=== PATIENT | male | born 1955 | race Caucasian/White ===

== ENCOUNTER 2024-07-14 16:07 | Inpatient (IN) | payer MEDICARE, OTHER, SELFPAY ==
--- NOTE | ~2024-07-14 | XR_ITS ---
XR knee RT 3V 07/18/2024 12:05 Indication: Right knee pain Procedure: 3 views right knee Comparison: No prior studies for comparison. Findings: There is mild tricompartment osteoarthritis. Moderate joint effusion. No fracture or trauma tic malalignment. No foreign bodies. Impression: 1: Mild osteoarthritis of the right knee. 2: Moderate joint effusion. Reviewed, dictated and finalized at location L. CARE SALES EXECUTIVE Impression: 1: Mild osteoarthritis of the right knee. 2: Moderate joint effusion.
--- NOTE | ~2024-07-14 | CT_ITS ---
EXAMINATION: CT brain wo con DATE: 07/14/2024 17:54 INDICATION: weakness, ams . TECHNIQUE: Computed tomography (CT) of the head was performed without intravenous contrast. The mA wa s adjusted according to patient size. Iterative reconstruction technique was employed. The dose-lengt h product was 681.00 mGy-cm. COMPARISON: None. FINDINGS: No acute intracranial hemorrhage or extra-axial fluid collection. No hydrocephalus, mass, or herniation. No acute ischemic infarct. Unremarkable dural venous sinus attenuation. No acute osseous abnormality. Right maxillary retention cyst/polyp, mild left inferior frontal and ethmoid mucosal thickening, the remaining aerated spaces are clear. Moderate cerebral and cerebellar atrophy and mild chronic white matter change. Atherosclerotic intrac ranial calcification. IMPRESSION: No acute intracranial process. Reviewed, dictated and finalized at location K. CHER UTILITY
--- NOTE | ~2024-07-14 | XR_ITS ---
EXAMINATION: XR chest 2V Exam Date/Time: 07/14/2024 17:52 EVENTS INTERN HISTORY: cough, weakness Comparison: None. RESULT: Lines, tubes, and devices: None. Lungs and pleura: Clear. Cardiomediastinal silhouette: Unremarkable. Other: No acute osseous or upper abdominal finding. IMPRESSION: No acute cardiopulmonary process. Reviewed, dictated and finalized at location K. TS INTERN
[2024-07-14 16:16] VITALS: BP 166/59; PULSE 99; RESP 16; TEMP 36.4; O2SAT 100
--- NOTE | 2024-07-14 17:33 | ED.WEAKNESS ---
HPI - Weakness General Chief complaint: Weakness <Fatimah Monzon PA-C - Last Filed: 07/14/24 17:56> Stated complaint: weakness <Fatimah Monzon PA-C - Last Filed: 07/14/24 17:56> Time Seen by Provider: 07/14/24 17:33 <Fatimah Monzon PA-C - Last Filed: 07/14/24 17:56> Focused HPI: Patient is a 69 y/o male who presents to the ED via EMS from home with report of weakness. Patient is a poor historian. Reports he has been feeling somewhat confused and increasingly weak over the last 1 week. Reports dry cough. Denies fevers, CP, SOB, BLE pain or swelling, N/V. GENERAL: Elderly, obese with BMI of 39.5, and in no acute distress. HEAD: Normocephalic, atraumatic. CHEST: Clear to auscultation. ?No respiratory distress. No significant focal lung sounds. HEART: Regular rate and rhythm.? No significant peripheral edema. NEURO: ?Alert and oriented x3. Patient screened in triage and initial orders placed.? ?Additional care and disposition to be based upon?diagnostic testing and treatment. <Fatimah Monzon PA-C - Last Filed: 07/14/24 17:56> Focused HPI: Patient is a 69 y/o male who presents to the ED via EMS from home with report of weakness. Patient is a poor historian. Reports he has been feeling somewhat confused and increasingly weak over the last 1 month. Patient denies headache, fevers, chest pain, difficulty breathing, abdominal pain, nausea vomiting diarrhea, dysuria or any other physical complaints. GENERAL: Elderly, obese with BMI of 39.5, and in no acute distress. HEAD: Normocephalic, atraumatic. CHEST: Clear to auscultation. ?No respiratory distress. No significant focal lung sounds. HEART: Regular rate and rhythm.? No significant peripheral edema. NEURO: ?Alert and oriented x3. Patient screened in triage and initial orders placed.? ?Additional care and disposition to be based upon?diagnostic testing and treatment. <Brenden Burt MD - Last Filed: 07/15/24 02:59> Source: patient <Fatimah Monzon PA-C - Last Filed: 07/14/24 17:56> Mode of arrival: EMS <Fatimah Monzon PA-C - Last Filed: 07/14/24 17:56> Limitations: no limitations <QUETA Simpson Last Filed: 07/14/24 17:56> Related Data Allergies/Adverse reactions: Allergies Allergy/AdvReac Type Severity Reaction Status Date / Time tramadol Allergy Mild ITCHING Verified 07/14/24 16:19 <QUETA Simpson Last Filed: 07/14/24 17:56> Exam Narrative: APPEARANCE: No apparent distress. Poor historian Head: atraumatic. EYES: EOMI, NOSE: Atraumatic NECK: Trachea midline RESPIRATORY: No increased rate of breathing clear to auscultation CARDIOVASCULAR: RRR, no peripheral edema ABDOMINAL: Non-distended soft nontender MUSCULOSKELETAl: No obvious deformities NEURO: Alert. Moving 4/4 extremities SKIN:: Warm, dry. Normal color PSYCHIATRIC: Normal affect <Brenden Burt MD - Last Filed: 07/15/24 02:59> Course Vital Signs Vital signs: Vital Signs Temperature 97.6 F 07/14/24 16:16 Pulse Rate 99 07/14/24 16:16 Respiratory Rate 16 07/14/24 16:16 Blood Pressure 166/59 H 07/14/24 16:16 Pulse Oximetry 100 07/14/24 16:16 Temperature 97.6 F 07/14/24 16:16 Pulse Rate 99 07/14/24 16:16 Respiratory Rate 16 07/14/24 16:16 Blood Pressure 166/59 H 07/14/24 16:16 Pulse Oximetry 100 07/14/24 16:16 <QUETA Simpson Last Filed: 07/14/24 17:56> Vital Signs Temperature 97.6 F 07/14/24 16:16 Pulse Rate 99 07/14/24 16:16 Respiratory Rate 16 07/14/24 16:16 Blood Pressure 166/59 H 07/14/24 16:16 Pulse Oximetry 100 07/14/24 16:16 Temperature 97.6 F 07/14/24 16:16 Pulse Rate 99 07/14/24 16:16 Respiratory Rate 16 07/14/24 16:16 Blood Pressure 166/59 H 07/14/24 16:16 Pulse Oximetry 100 07/14/24 16:16 <Brenden Burt MD - Last Filed: 07/15/24 02:59> MDM - Weakness MDM Narrative Medical decision making narrative: MSE by LUANA in triage. <Fatimah Monzon PA-C - Last Filed: 07/14/24 17:56> MSE by LUANA in triage. -Course: This is a 69-year-old male presenting with chief complaint of weakness over the last 1-2 months. Patient is a poor historian but has no physical complaints at this time. I reached out to his to get more history and she said that over last 2 months his condition is getting worse. He is frequently confused and very weak. No previous diagnosis of dementia. He is having more falls at home and she is not able to take care of him. Broad workup was obtained ordered here and everything was negative. Patient will be placed in observation for care coordination consult as he may need placement to a group home. <Brenden Burt MD - Last Filed: 07/15/24 02:59> Lab Data Result diagrams: 07/14/24 23:40 07/14/24 23:40 <Fatimah Monzon PA-C - Last Filed: 07/14/24 17:56> Labs: Lab Results 07/14/24 07/14/24 Range/Units 23:13 23:40 WBC 9.0 (4.5-10.0) K/mm3 RBC 5.14 (4.6-6.20) M/mm3 Hgb 14.4 (14.0-18.0) g/dL Hct 45.3 (42.0-52.0) % MCV 88.1 (80-100) fl MCH 28.0 (26-34) pg MCHC 31.8 L (32-36) g/dl RDW 13.7 (11.5-14.5) % Plt Count 207 (150-375) k/mm3 MPV 10.6 H (7.4-10.4) fl Immature Gran % (Auto) 0.3 (0-0.5) % Neut % (Auto) 59.7 (45.5-73.1) % Lymph % (Auto) 27.1 (18.3-44.2) % Villalba % (Auto) 9.0 H (2.6-8.5) % Eos % (Auto) 3.3 (0-4.4) % Baso % (Auto) 0.6 (0.2-1.2) % Lymph # (Auto) 2.44 (0.9-3.2) K/mm3 Villalba # (Auto) 0.8 H (0.1-0.6) K/mm3 Eos # (Auto) 0.3 (0-0.3) K/mm3 Baso # (Auto) 0.1 (0.0-0.1) K/mm3 Abs Immat Gran (auto) 0.03 (0.00-0.031) K/mm3 Absolute Neuts (auto) 5.4 (1.3-6.7) K/mm3 Absolute Nucleated RBC 0.000 (0.0-0.012) K/mm3 Nucleated RBC % 0.0 (0.0-0.2) % PT 14.0 (11.1-14.7) Seconds INR 1.0 APTT 27.6 (22.3-36.8) Seconds Sodium 144 (137-145) mmol/L Potassium 3.7 (3.4-5.0) mmol/L Chloride 102 (98-107) mmol/L Carbon Dioxide 31 H (22-30) mmol/L Anion Gap 11 (4-12) mmol/L BUN 22 H (9-20) mg/dL Creatinine 0.93 (0.7-1.3) mg/dL Estim Creat Clear Calc 86 ml/min Estimated GFR > 60 (59 - ) Glucose 88 (65-110) mg/dL Lactic Acid 1.6 (0.7-2.0) mmol/L Calcium 9.6 (8.4-10.2) mg/dL Magnesium 1.9 (1.6-2.3) mg/dL Total Bilirubin 0.6 (0.2-1.3) mg/dL AST 27 (17-59) U/L ALT 26 (6-50) U/L Alkaline Phosphatase 106 (38-126) U/L NT-Pro-B Natriuret Pep 627 H (19.9-100) pg/mL Total Protein 8.0 (6.3-8.2) g/dL Albumin 4.6 (3.5-5.1) g/dL Urine Color Yellow (Yellow) Urine Appearance Clear (Clear) Urine pH 6.5 (5.0-9.0) Ur Specific [place] 1.018 (1.001-1.035) Urine Protein Negative (Negative) mg/dL Urine Glucose (UA) Negative (Negative) mg/dL Urine Ketones Negative (Negative) mg/dL Ur Blood (Man) Negative (Negative) Urine Nitrate Negative (Negative) Urine Bilirubin Negative (Negative) Urine Urobilinogen 1.0 (<2.0) mg/dL Leukocyte Esterase Rfl Negative (Negative) STEPHANIE/UL Influenza A (RT-PCR) Negative (Negative) Influenza B (RT-PCR) Negative (Negative) RSV (RT-PCR) Negative (Negative) SARS-CoV-2 RNA (RT-PCR) Negative (Negative) <Fatimah Monzon PA-C - Last Filed: 07/14/24 17:56> Lab Results 07/14/24 07/14/24 Range/Units 23:13 23:40 WBC 9.0 (4.5-10.0) K/mm3 RBC 5.14 (4.6-6.20) M/mm3 Hgb 14.4 (14.0-18.0) g/dL Hct 45.3 (42.0-52.0) % MCV 88.1 (80-100) fl MCH 28.0 (26-34) pg MCHC 31.8 L (32-36) g/dl RDW 13.7 (11.5-14.5) % Plt Count 207 (150-375) k/mm3 MPV 10.6 H (7.4-10.4) fl Immature Gran % (Auto) 0.3 (0-0.5) % Neut % (Auto) 59.7 (45.5-73.1) % Lymph % (Auto) 27.1 (18.3-44.2) % Villalba % (Auto) 9.0 H (2.6-8.5) % Eos % (Auto) 3.3 (0-4.4) % Baso % (Auto) 0.6 (0.2-1.2) % Lymph # (Auto) 2.44 (0.9-3.2) K/mm3 Villalba # (Auto) 0.8 H (0.1-0.6) K/mm3 Eos # (Auto) 0.3 (0-0.3) K/mm3 Baso # (Auto) 0.1 (0.0-0.1) K/mm3 Abs Immat Gran (auto) 0.03 (0.00-0.031) K/mm3 Absolute Neuts (auto) 5.4 (1.3-6.7) K/mm3 Absolute Nucleated RBC 0.000 (0.0-0.012) K/mm3 Nucleated RBC % 0.0 (0.0-0.2) % PT 14.0 (11.1-14.7) Seconds INR 1.0 APTT 27.6 (22.3-36.8) Seconds Sodium 144 (137-145) mmol/L Potassium 3.7 (3.4-5.0) mmol/L Chloride 102 (98-107) mmol/L Carbon Dioxide 31 H (22-30) mmol/L Anion Gap 11 (4-12) mmol/L BUN 22 H (9-20) mg/dL Creatinine 0.93 (0.7-1.3) mg/dL Estim Creat Clear Calc 86 ml/min Estimated GFR > 60 (59 - ) Glucose 88 (65-110) mg/dL Lactic Acid 1.6 (0.7-2.0) mmol/L Calcium 9.6 (8.4-10.2) mg/dL Magnesium 1.9 (1.6-2.3) mg/dL Total Bilirubin 0.6 (0.2-1.3) mg/dL AST 27 (17-59) U/L ALT 26 (6-50) U/L Alkaline Phosphatase 106 (38-126) U/L NT-Pro-B Natriuret Pep 627 H (19.9-100) pg/mL Total Protein 8.0 (6.3-8.2) g/dL Albumin 4.6 (3.5-5.1) g/dL Urine Color Yellow (Yellow) Urine Appearance Clear (Clear) Urine pH 6.5 (5.0-9.0) Ur Specific [place] 1.018 (1.001-1.035) Urine Protein Negative (Negative) mg/dL Urine Glucose (UA) Negative (Negative) mg/dL Urine Ketones Negative (Negative) mg/dL Ur Blood (Man) Negative (Negative) Urine Nitrate Negative (Negative) Urine Bilirubin Negative (Negative) Urine Urobilinogen 1.0 (<2.0) mg/dL Leukocyte Esterase Rfl Negative (Negative) STEPHANIE/UL Influenza A (RT-PCR) Negative (Negative) Influenza B (RT-PCR) Negative (Negative) RSV (RT-PCR) Negative (Negative) SARS-CoV-2 RNA (RT-PCR) Negative (Negative) <Brenden Burt MD - Last Filed: 07/15/24 02:59> Discharge Plan Discharge Clinical Impression: Generalized weakness, Confusion <Fatimah Monzon PA-C - Last Filed: 07/14/24 17:56> Patient Disposition: Still a Patient <Fatimah Monzon PA-C - Last Filed: 07/14/24 17:56> Condition: Stable <Fatimah Monzon PA-C - Last Filed: 07/14/24 17:56> Patient Language: Danish <Fatimah Monzon PA-C - Last Filed: 07/14/24 17:56> Follow-up/Referrals: [facility] [place] [facility], [Primary Care Provider] - <Fatimah Monzon PA-C - Last Filed: 07/14/24 17:56>
--- NOTE | 2024-07-14 17:40 | ECG_ITS ---
Test Date: 2024-07-14 18:28:17 Measurements Intervals Henry Rate: 53 P: 52 NE: 157 QRS: -54 QRSD: 122 T: 57 QT: 481 QTc: 453 Interpretive Statements SINUS BRADYCARDIA WITH OCCASIONAL VENTRICULAR PREMATURE COMPLEXES RIGHT BUNDLE BRANCH BLOCK LEFT ANTERIOR FASCICULAR BLOCK POSSIBLE ANTERIOR MYOCARDIAL INFARCTION , OF INDETERMINATE AGE BASELINE ARTIFACT- V3 ABNORMAL ECG No previous ECG available for comparison Electronically Signed On 07-14-2024 19:11:02 CHARGE LPN by Brad Page D.O.
--- OUTSIDE RECORDS SUMMARY | 2024-07-14 18:21 | XMS_ITS | Encounter Summary ---
Author Organization [facility] Address [address] [place] [address] Care Team Providers Care Vacuum Worker Name Role Phone Rodolfo Huerta MD Unavailable [phone] Vince Coleman MD Primary Care Provider [phone] Lana Franklin RN Unavailable [phone] Encounter Details Date Type Department Care Team (Late st Contact Info) Description 07/28/2021 [employer] Message Enc [facility] Family & Internal Medicine [address] [address] Samuel, [facility] Provider Due for routine follow-up appt Social History Tobacco Use Types Packs/Day Years Used Date Smoking Tobacco: Never Smokeless Tobacco: Former Chew Alcohol Use Standard Drinks/Week Comments Never 0 (1 standard drink = 0.6 oz pur e alcohol) PHQ-2 Answer Date Recorded PHQ-2 Score - If the patient scores above 3, please move on to questions 3-9 1 10/26/2020 Sex and Gender Information Value Date Recorded Sex Assigned at Male 06/17/2024 5:08 PM UNIFORM CAP OPERATOR Legal Sex Male 7:26 PM CDT Gender Identity Male 09/15/2021 5:59 AM CDT Sexual Orientation Straight 09/15/2021 5: 59 AM CDT Occupation Industry Job Start Date Job End Date Not on file Not on file Not on file Not on file documented as of this encounter Functional Status * RETIRED Are you deaf or do you have serious difficulty hearing Answer Date of Assessment Author Status No 11/10/2020 3:00 AM CDT Activ e * RETIRED Are you blind or do you have serious difficulty seeing, even when wearing glasses? Answer Date of Assessment Author Status No 11/10/2020 3:00 AM CDT Activ e * Do you have serious difficulty walking or climbing stairs? Answer Date of Assessment Author Status Yes 11/10/2020 3:00 AM Susy Berger RN Active * Do you have difficulty dressing or bathing? Answer Date of Assessment Author Status No 11/10/2020 3:00 AM Susy Berger RN Active * Because of a physical, mental, or emotional condition, do you have difficulty doing errands alone such as visiting a doctor's office or shopping? Answer Date of Assessment Author Status Yes 11/10/2020 3:00 AM Susy Berger RN Active documented as of this encounter Mental Status * Because of a physical, mental, or emotional condition, do you have serious difficulty concentrating, remembering, or making decisions? Answer Entry Date Author Status No 11/10/2020 3:00 AM Susy Berger RN Active documented in this encounter Plan of Treatment Not on file documented as of this encounter Visit Diagnoses Not on filedocumented in this encounter Additional Health Concerns Infection Onset Date Last Indicated Resolved Time COVID-19 Confirmed Comment:Pt stated symptoms started ~01/06/23 01/06/2023 01/08/2023 02/03/2023 1:42 PM C DT COVID-19 Rule Out 01/08/2023 01/08/2023 01/08/2023 9:27 PM CDT COVID-19 Rule Out 05/18/2024 05/18/2024 05/18/2024 9:05 PM UNIFORM CAP OPERATOR COVID-19 Rule Out 05/19/2024 05/19/2024 05/19/2024 8:06 PM UNIFORM CAP OPERATOR COVID-19 Rule Out 06/17/2024 06/17/2024 06/17/2024 5:58 PM UNIFORM CAP OPERATOR Assessment Noted Time PHQ-9 Depression Total Score: 16 021 3:31 PM CDT documented as of this encounter Care Teams Vacuum Worker Relationship Specialty [place] [address] [place] [address] PCP - General FAMILY PRACTICE 07/09/19 Rodolfo Huerta MD [facility]. [address] [address] [employer]ax Timber Management Technician CARDIOVASCULAR DISEASE 02/22/18 Lana Franklin, RN [address] [place] [address] Lead Network Engineer (Ambulatory) REGISTERED NURSE 05/20/24 06/09/24 documented as of this encounter
--- OUTSIDE RECORDS SUMMARY | 2024-07-14 18:21 | XMS_ITS | Encounter Summary ---
Author Organization [facility] Address [address] [place] [address] Care Team Providers Care Faculty Member Name Role Phone Hernandez Moore MD, Svetlana Primary Care Provider [phone] Rodolfo Huerta MD Unavailable [phone] Franny Patel ANP- Unavailable Unavailab Vince Michael MD Primary Care Provider [phone] Lana Franklin RN Unavailable [phone] Encounter Details Date Type Department Care Team (Late st Contact Info) Description 03/20/2018 [facility] at [address] [id number] Enedina Jeronimo MA Social History Tobacco Use Types Packs/Day Years Used Date Smoking Tobacco: Never Assessed Sex and Gender Information Value Date Recorded Sex Assigned at Male 06/17/2024 5:08 PM STUDIO MUSICIAN Legal Sex Male 7:26 PM CDT Gender Identity Male 09/15/2021 5:59 AM CDT Sexual Orientation Straight 09/15/2021 5: 59 AM CDT documented as of this encounter Plan of Treatment Not on file documented as of this encounter Procedures Procedure Name Priority Date/Time Associated Diagnosis Comments COMPREHENSIVE METABOLIC PANEL Routine 01/08/2018 LIPID PANEL Routine 01/08/2018 HEMOGLOBIN, GLYCOSYLATED Routine 01/08/2018 VITAMIN D, 25 OH Routine 01/08/2018 documented in this encounter Results * HEMOGLOBIN, GLYCOSYLATED (01/08/2018) HGB A1C 6.0 01/08/2018 us [facility] Final Result * COMPREHENSIVE METABOLIC PANEL (01/08/2018) SODIUM S/P/B 145 POTASSIUM S/P/B 4.1 CO2 29 CHLORIDE S/P/B 107 GLUCOSE 89 mg/dL CALCIUM S/P/B 9.7 BUN 16 CREATININE S/P/B 1.0 0.7 - 1.3 EGFR AFR. AMER. 92 EGFR NON-AFR. AMER. 80 <=90 ALKALINE PHOSPHATASE S/P/B 102 ALT 59 AST 26 BILIRUBIN TOTAL S/P/B 0.6 ALBUMIN S/P/B 4.3 3.5 - 5.0 TOTAL PROTEIN S/P/B 7.3 01/08/2018 us [facility] Final Result * LIPID PANEL (01/08/2018) CHOLESTEROL 143 HDL 32 TRIGLYCERIDES 180 LDL (CALCULATED) 87 01/08/2018 us [facility] Final Result * VITAMIN D, 25 OH (01/08/2018) VITAMIN D 25 HYDROXY S/P/B 24.9 01/08/2018 us Doc [facility] Final Result documented in this encounter Visit Diagnoses Not on filedocumented in this encounter Additional Health Concerns Infection Onset Date Last Indicated Resolved Time COVID-19 Confirmed Comment:Pt stated symptoms started ~01/06/23 01/06/2023 01/08/2023 02/03/2023 1:42 PM C DT COVID-19 Rule Out 01/08/2023 01/08/2023 01/08/2023 9:27 PM CDT COVID-19 Rule Out 05/18/2024 05/18/2024 05/18/2024 9:05 PM STUDIO MUSICIAN COVID-19 Rule Out 05/19/2024 05/19/2024 05/19/2024 8:06 PM STUDIO MUSICIAN COVID-19 Rule Out 06/17/2024 06/17/2024 06/17/2024 5:58 PM STUDIO MUSICIAN documented as of this encounter Care Teams Faculty Member Relationship Specialty Start Date End Date Svetlana Ng MD [phone] (Work) PCP - General [employer] 02/19/18 07/08/19 Franny Patel ANP- PCP - [place] [facility] Attributed Provider 05/28/15 02/12/19 [place] [address] [place] [address] PCP - General FAMILY PRACTICE 07/09/19 Rodolfo Huerta MD [facility]. [address] [address] [place] Boat Captain CARDIOVASCULAR DISEASE 02/22/18 Lana Franklin, RN [address] [place] [address] Office Machine Embossograph Operator (Ambulatory) REGISTERED NURSE 05/20/24 06/09/24 documented as of this encounter
--- OUTSIDE RECORDS SUMMARY | 2024-07-14 18:21 | XMS_ITS | Encounter Summary ---
Author Organization [facility] Address [address] [place] [address] Care Team Providers Care Web Site Manager Name Role Phone Rodolfo Huerta MD Unavailable [phone] Vince Coleman MD Primary Care Provider [phone] Encounter Details Date Type Department Care Team (Late st Contact Info) Description 06/10/2024 [email or web address] Message Enc [facility] Medical [facility] Family & Internal Medicine [facility] [address] [place] [address] [facility] Appointment request Social History Tobacco Use Types Packs/Day Years Used Date Smoking Tobacco: Former Smokeless Tobacco: Former Chew Comments:no hx smoker Alcohol Use Standard Drinks/Week Comments Never 0 (1 standard drink = 0.6 oz pur e alcohol) Humiliation, Afraid, Rape, and Kick questionnair e Answer Date Recorded Within the last year, have y ou been afraid of your partner or ex-partner? No 01/09/2023 Within the last year, have y ou been humiliated or emotionally abused in other ways by your partner or ex-partner? No Within the last year, have y ou been kicked, hit, slapped, or otherwise physically hurt by your partner or ex-partner? No 01/09/2023 Within the last year, have y ou been raped or forced to have any kind of sexual activity by your partner or ex-partner? No 01/09/2023 Overall Financial Resource Strain (CARDIA) Answe r Date Recorded How hard is it for you to pa y for the very basics like food, housing, medical care, and heating? Not hard at all 01/09/2023 PHQ-2 Answer Date Recorded Patient Health Questionnaire-2 Score 0 09/28/2022 Hunger Vital Sign Answer Date Recorded Within the past 12 months, y ou worried that your food would run out before you got the money to buy more. Never true 01/10/20 23 Within the past 12 months, t he food you bought just didn't last and you didn't have money to get more. Never true 01/09/2023 PRAPARE - Transportation Answer Date Re corded In the past 12 months, has l ack of transportation kept you from medical appointments or from getting medications? No 12/26 In the past 12 months, has l ack of transportation kept you from meetings, work, or from getting things needed for daily living? No 01/09/2023 Housing Stability Vital Sign Answer Jacobo e Recorded In the last 12 months, was t here a time when you were not able to pay the mortgage or rent on time? No 01/09/2023 In the last 12 months, how many places have you lived? 1 01/09/2023 In the last 12 months, was t here a time when you did not have a steady place to sleep or slept in a [place] (including now)? No 01/09/2023 Sex and Gender Information Value Date Recorded Sex Assigned at Male 06/17/2024 5:08 PM MANAGER PARTY Legal Sex Male 7:26 PM CDT Gender Identity Male 09/15/2021 5:59 AM CDT Sexual Orientation Straight 09/15/2021 5: 59 AM CDT Occupation Industry Job Start Date Job End Date Not on file Not on file Not on file Not on file documented as of this encounter Functional Status * Are you deaf or do you have serious difficulty hearing Answer Date of Assessment Author Status No 01/09/2023 10:43 AM YESSENIAT Kailey Armijo RN Active * Are you blind or do you have serious difficulty seeing, even when wearing glasses? Answer Date of Assessment Author Status No 01/09/2023 10:43 AM YESSENIAT Kailey Armijo RN Active * Do you have serious difficulty walking or climbing stairs? Answer Date of Assessment Author Status Yes 01/09/2023 10:43 AM CDT Kailey Armijo RN Active * Do you have difficulty dressing or bathing? Answer Date of Assessment Author Status Yes 01/09/2023 10:43 AM YESSENIAT Kailey Armijo RN Active * Because of a physical, mental, or emotional condition, do you have difficulty doing errands alone such as visiting a doctor's office or shopping? Answer Date of Assessment Author Status Yes 01/09/2023 10:43 AM CDT Kailey Armijo RN Active documented as of this encounter Mental Status * Because of a physical, mental, or emotional condition, do you have serious difficulty concentrating, remembering, or making decisions? Answer Entry Date Author Status Yes 01/09/2023 10:43 AM Kailey Munroe RN Active documented in this encounter Plan of Treatment Not on file documented as of this encounter Visit Diagnoses Not on filedocumented in this encounter Additional Health Concerns Infection Onset Date Last Indicated Resolved Time COVID-19 Rule Out 06/17/2024 06/17/2024 06/17/2024 5:58 PM MANAGER PARTY Assessment Noted Time PHQ-9 Depression Total Score: 16 021 3:31 PM CDT documented as of this encounter Care Teams Web Site Manager Relationship Specialty [place] [address] [place] [address] PCP - General FAMILY PRACTICE 07/09/19 Rodolfo Huerta MD [facility]. [address] [place] [address] Kyung Tourist Information Officer CARDIOVASCULAR DISEASE 02/22/18 documented as of this encounter
--- OUTSIDE RECORDS SUMMARY | 2024-07-14 18:21 | XMS_ITS | Encounter Summary ---
Author Organization [facility] Address [address] [place] [address] Care Team Providers Care Scratch Finisher Name Role Phone Rodolfo Huerta MD Unavailable [phone] Vince Coleman MD Primary Care Provider [phone] Lana Franklin RN Unavailable [phone] Encounter Details Date Type Department Care Team (Late st Contact Info) Description 06/06/2022 [employer] Message Enc [facility] [address] [address] [place], [facility] Provider lab results Social History Tobacco Use Types Packs/Day Years Used Date Smoking Tobacco: Former Smokeless Tobacco: Former Chew Comments:no hx smoker Alcohol Use Standard Drinks/Week Comments Never 0 (1 standard drink = 0.6 oz pur e alcohol) PHQ-2 Answer Date Recorded PHQ-2 Score - If the patient scores above 3, please move on to questions 3-9 2 09/16/2021 Sex and Gender Information Value Date Recorded Sex Assigned at Male 06/17/2024 5:08 PM ADVANCED QUALITY ENGINEER Legal Sex Male 7:26 PM CDT Gender Identity Male 09/15/2021 5:59 AM CDT Sexual Orientation Straight 09/15/2021 5: 59 AM CDT Occupation Industry Job Start Date Job End Date Not on file Not on file Not on file Not on file COVID-19 Exposure Response Date Recorded In the last 10 days, have yo u been in contact with someone who was confirmed or suspected to have Coronavirus/COVID-19? No / Unsure 06/05/2022 1:53 PM ADVANCED QUALITY ENGINEER documented as of this encounter Functional Status [...] Rule Out 05/18/2024 05/18/2024 05/18/2024 9:05 PM ADVANCED QUALITY ENGINEER COVID-19 Rule Out 05/19/2024 05/19/2024 05/19/2024 8:06 PM ADVANCED QUALITY ENGINEER COVID-19 Rule Out 06/17/2024 06/17/2024 06/17/2024 5:58 PM ADVANCED QUALITY ENGINEER Assessment Noted Time PHQ-9 Depression Total Score: 16 021 3:31 PM CDT documented as of this encounter Care Teams Scratch Finisher Relationship Specialty [place] [address] [place] [address] PCP - General FAMILY PRACTICE 07/09/19 Rodolfo Huerta MD [facility]. [address] [address] [place] [facility] CARDIOVASCULAR DISEASE 02/22/18 Lana Franklin, RN [address] [place], [place] [address] Apprentice Plumber (Ambulatory) REGISTERED NURSE 05/20/24 06/09/24 documented as of this encounter
--- OUTSIDE RECORDS SUMMARY | 2024-07-14 18:21 | XMS_ITS | Encounter Summary ---
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 [address] [address] [employer] Technician CARDIOVASCULAR DISEASE 02/22/18 Lana Franklin, RN [address] [place] [address] Psych Nurse (Ambulatory) REGISTERED NURSE 05/20/24 06/09/24 documented as of this encounter
--- OUTSIDE RECORDS SUMMARY | 2024-07-14 18:22 | XMS_ITS | Clinical Summary ---
Author Organization [facility] Address [address] [place] [address] Care Team Providers Care Mannequin Refinisher Name Role Phone Rodolfo Huerta MD Unavailable [phone] Brittany Coleman MD Primary Care Provider Allergies Active Allergy Reactions Criticality Noted Date Comments Hydrochlorothiazide W-Triamterene Rash Low 08/27/2009 Petechial rash with Vytorin, HCTZ, Triamterene Tramadol Itching Low 04/01/2018 Medications CPAP SUPPLIESIndication s:Sleep apnea Pt needs new CPAP supplies for his machine (hose and mask) 1 Device 09/11/19 20 Active COMPRESSION STOCKINGS, DME,Indications:Lo wer extremity edema Apply 1 Package topically daily. 28 Package 1 09/27/19 22 Active Blood Pressure Monitoring (BLOOD PRESSURE MONITOR/L CUFF) MiscIndications:Pr imary hypertension Take BP as directed 1 each 06/05/19 23 Active Blood Pressure Monitoring (ADULT BLOOD PRESSURE CUFF LG) KitIndications:HTN (hypertension) Take blood pressure daily and report findings to office nurse. DX:HTN 1 kit 06/06/19 23 Active indomethacin (INDOCIN) 50 MG capsuleIndications :Acute gout Take 1 capsule by mouth 3 x's per day for 7 days. 21 capsule 05/15/20 23 Active mirabegron ER (MYRBETRIQ) 25 MG 24 hr tabletIndications: Overactive Bladder Take 1 tablet (25 mg total) by mouth daily. Indications: Overactive Bladder 90 tablet 05/15/20 23 Active tamsulosin (FLOMAX) 0.4 MG CapIndications:Bryson ign prostatic hyperplasia (BPH) suspected Take 1 capsule (0.4 mg total) by mouth daily. Indications: Benign prostatic hyperplasia (BPH) suspected 90 capsule 08/14/19 24 Active vitamin D3 (CHOLECALCIFEROL) 25 mcg tabletIndications: supplement Take 1 tablet (1,000 Units total) by mouth daily. Indications: supplement 90 tablet 08/14/19 24 Active hydrOXYzine (ATARAX) 50 MG tablet 04/18/20 23 Active traZODone (DESYREL) 100 MG tablet Take 0.5 tablets (50 mg total) by mouth nightly as needed. 05/30/19 24 Active furosemide (LASIX) 20 MG tabletIndications: Edema, unspecified type Take 1 tablet (20 mg total) by mouth daily. 30 tablet 08/17/19 24 Active HYDROcodone-acetam inophen (NORCO) 10-325 MG tabletIndications: Acute Pain < 7 Day Supply Take 1 tablet by mouth every 6 (six) hours as needed for Pain. Indications: Acute Pain < 7 Day Supply 28 tablet 11/15/19 24 Active atorvastatin (LIPITOR) 40 MG tabletIndications: Hyperlipidemia Take 1 tablet (40 mg total) by mouth nightly at bedtime. Indications: High Amount of Fats in the Blood 90 tablet 11/22/19 24 Active buPROPion XL (WELLBUTRIN XL) 150 MG 24 hr tabletIndications: Major depressive disorder Take 1 tablet (150 mg total) by mouth every morning. 90 tablet 11/22/19 24 Active zolpidem (AMBIEN) 5 MG tabletIndications: Primary insomnia Take 1 tablet (5 mg total) by mouth nightly as needed for Sleep. 30 tablet 02/18/20 24 Active acetaminophen-code ine (TYLENOL #3) 300-30 MG tabletIndications: Acute Pain < 7 Day Supply Take 1 tablet by mouth every 6 (six) hours as needed for Pain. Indications: Acute Pain < 7 Day Supply 28 tablet 03/20/20 24 Active sertraline (ZOLOFT) 50 MG tabletIndications: Depression Take 1 tablet (50 mg total) by mouth every morning. Indications: Depression 90 tablet 03/21/20 24 Active aspirin EC (ECOTRIN) 81 MG tabletIndications: Aspirin Therapy Take 1 tablet (81 mg total) by mouth daily. Indications: Treatment with Aspirin 90 tablet 03/21/20 Active chlorpheniramine (CHLOR-TRIMETON) 4 MG tabletIndications: Allergic Rhinitis Take 1 tablet (4 mg total) by mouth every 6 (six) hours as needed for Allergies. Indications: Allergic Rhinitis 90 tablet 03/21/20 Active pantoprazole EC (PROTONIX) 40 MG tabletIndications: Nonerosive Gastroesophagel Reflux Disease Take 1 tablet (40 mg total) by mouth daily. Indications: Nonerosive Gastroesophagel Reflux Disease 90 tablet 03/21/20 Active hydroCHLOROthiazid e (MICROZIDE) 12.5 MG capsuleIndications :Hypertension Take 1 capsule (12.5 mg total) by mouth every morning. Indications: High Blood Pressure 90 capsule 03/21/20 Active amLODIPine (NORVASC) 10 MG tabletIndications: Hypertension Take 1 tablet (10 mg total) by mouth daily. Indications: High Blood Pressure 90 tablet 03/21/20 Active lisinopril (PRINIVIL) 20 MG tabletIndications: Hypertension Take 1 tablet (20 mg total) by mouth daily. Indications: High Blood Pressure 90 tablet 03/21/20 Active fenofibrate (TRICOR) 54 MG tabletIndications: Hyperlipidemia Take 1 tablet (54 mg total) by mouth daily. Indications: High Amount of Fats in the Blood 90 tablet 03/21/20 Active fluticasone propionate (FLONASE) 50 MCG/ACT nasal spray 1 spray by Nasal route 2 (two) times daily. Active Active Problems Problem Noted Date Diagnosed Date Abnormal liver enzymes 07/10/2024 Acquired pes planus 07/10/2024 Plantar fasciitis 07/10/2024 Actinic keratosis 07/10/2024 Alcohol abuse 07/10/2024 Overview (07/10/2024): Rule out alcohol dependence. Alcohol dependence ([facility]) 07/10/2024 Anemia 07/10/2024 Cotton wool spots 07/10/2024 Coronary artery disease 07/10/2024 Effusion of lower leg joint 07/10/2024 Osteoarthrosis 07/10/2024 Fitting and adjustment of hearing aid 07/10/2024 Hepatic dysfunction 07/10/2024 Impaired glucose tolerance 07/10/2024 Incomplete right bundle branch block (RBBB) 06/28 Insomnia, unspecified 07/10/2024 Insomnia 07/10/2024 Left anterior fascicular block (LAFB) 07/10/2024 Major depressive disorder, r ecurrent severe without psychotic features ([facility]) 07/10/2024 Malabsorption of glucose 07/10/2024 Microscopic hematuria 07/10/2024 Major depressive disorder, r ecurrent, moderate ([facility]) 07/10/2024 Myopia 07/10/2024 Occupational disorder 07/10/2024 Other reduced mobility 07/10/2024 Encounter for examination an d observation for unspecified reason 07/10/2024 Petechiae 07/10/2024 Presbyopia 07/10/2024 Problem related to care provider dependency, uns pecified 07/10/2024 Sensorineural hearing loss, bilateral 07/10/2024 Segmental dysfunction of thoracic region 025 Regular astigmatism 07/10/2024 Sinus bradycardia 07/10/2024 Somatic dysfunction of thoracic region Strain of thoracic back region 07/10/2024 Traumatic brain injury ([facility]) 025 Suicidal ideations 07/10/2024 Unspecified abnormalities of gait and mobility 0 07/10/2024 Unspecified fall, subsequent encounter Unspecified urinary incontinence 07/10/2024 Venous insufficiency (chronic) (peripheral) 06/28 Vitamin D deficiency 07/10/2024 COOPER on CPAP 02/18/2024 Benign prostatic hyperplasia with weak urinary s tream 11/17/2023 SARS-associated coronavirus infection 01/09/2023 Morbid (severe) obesity due to excess calories ([facility]) 06/05/2022 Body mass index (BMI) 40.0-44.9, adult ([facility]) 06/05/2022 Morbid obesity with BMI of 4 0.0-44.9, adult ([facility]) 09/26/2021 Weakness 11/10/2020 Chronic back pain 09/27/2020 Lower extremity edema 04/29/2018 Angina pectoris 04/29/2018 Onychomycosis of toenail 03/01/2018 Onychogryphosis 03/01/2018 Obesity 02/28/2018 Heartburn 02/28/2018 Gout 02/28/2018 Dizziness 02/28/2018 Hypertensive disorder 06/07/2017 Hearing loss 06/07/2017 Hiatal hernia 06/07/2017 Hypercholesterolemia 06/07/2017 Major depressive disorder 06/07/2017 PTSD (post-traumatic stress disorder) 06/07/2017 Tinnitus 06/07/2017 Adjustment disorder with mixed anxiety and depre ssed mood 02/17/2016 Dyslipidemia Encounters Date Type Department Care Team Description 07/03/2024 Telephone [facility] Family & Internal [address] [phone] Brittany Coleman MD Medication Request 06/30/2024 7:37 AM RUST - 06/30/2024 12:35 PM RUST Emergency [facility] Emergency Room [address] [place] [id number] Joanne Conway MD Multiple Falls Discharge Disposition: Home or Self Care (Routine Discharge) 06/29/2024 10:05 PM MEDICAL DOCTOR MD - 06/30/2024 12:21 AM RUST Emergency [facility] Emergency Room [address] [place] [id number] Johnnie Cervantes MD Fall (Unwitnessed ground level fall at 0100 this morning) Discharge Disposition: Home or Self Care (Routine Discharge) 06/29/2024 Travel 06/17/2024 5:10 PM RUST - 06/18/2024 10:25 AM RUST Emergency [facility] Emergency Room [address] [place] [address] Troy Quevedo MD Suicidal Ideation Discharge Disposition: Home or Self Care (Routine Discharge) 06/17/2024 Travel 06/10/2024 MyCbrittani Message Enc [facility] Internal [address] [phone] Samuel [facility] Provider Appointment request 06/10/2024 Telephone [facility] Internal [address] [phone] Brittany Coleman MD Appointment Request 06/10/2024 Patient Outreach [address] [phone] Lana Franklin RN Hospital Follow Up (TCM Week # 3- Final) 06/04/2024 Patient Outreach [address] [phone] Madelyn Tillman RN Hospital Follow Up (Call to patient's . ) 06/03/[address] [phone] Brittany Coleman MD Appointment Request 05/30/2024 Patient Outreach [address] [phone] Madelyn Tillman RN Hospital Follow Up (Follow up call to the patient. ) 05/29/2024 Scan HEALTH INFO SRVCS Scanned, Doc Med Group 05/29/2024 Zimbrat Message Enc [address] [address] [facility]ment with 05/29/2024 Patient Outreach [address] [phone] Lana Franklin RN TCM ([facility] Behavioral health 05/20-05/27) 05/27/2024 Scan HEALTH INFO SRVCS Scanned, Doc Med Group 05/22/2024 Patient Outreach [address] [phone] Lana Franklin RN Hospital Follow Up 05/20/2024 Patient Outreach [address] [phone] Lana Franklin RN Hospital Follow Up (Admission notification. ) 05/19/2024 4:10 PM MEDICAL DOCTOR MD - 05/20/2024 12:52 PM RUST Emergency [facility] Emergency Room [address] [place] [address] Christi Watson MD Sallis, Milton, MD Psychosocial Complaints Discharge Disposition: Psych[facility] Hospital 05/18/2024 8:17 PM MEDICAL DOCTOR MD - 05/19/2024 8:30 AM RUST Emergency [facility] Emergency Room [id number] [place] [id number] Johnnie Cervantes MD Suicidal Ideation Discharge Disposition: Home or Self Care (Routine Discharge) 05/18/2024 Travel 05/13/2024 Scan MG HEALTH INFO SRVCS Scanned, Doc [facility] 05/12/2024 Scan MG HEALTH INFO SRVCS Scanned, Doc Med Group 04/16/2024 Telephone [facility] Family & Internal Medicine [facility] [address] [place] [address] Brittany Coleman MD Question from Last 3 Months Immunizations Name Administration Dates Next Due Anthrax Vaccine 01/14/2005 Fluzone High Dose - >Age 65 (Prefilled Syringe) 04/03/2022(Deferred: Patient Refused) H1N1 Injectable 2009 Influenza 06/21/2009,2009 Hepatitis A (Havrix [address]) 09/25/1998,1997 Hepatitis B (Generic: Adult) 05/04/2004,03/24/20 02,09/26/1998 Influenza (Generic) 03/19/2018, 5,03/30/2012,02/17,06/21/2009,06/18/2009,03/29/2006 ,04/08/2004,03/24/2002 Influenza Adult (Generic) 03/19/2018,05/09/2015 MMR (MMRII) 05/03/1998 MODERNA COVID-19 (12+) MRNA, LNP-S, PF, 100 MCG/ 0.5 ML DOSE 11/08/2020,10/11/2020 Meningococcal (Menomune) 03/24/2002 Pneumococcal (Pneumovax 23) 08/26/2010 Polio Opv (Generic) 09/25/1998 Small Pox 05/04/2004 Td (TDVAX) 05/03/1998 Tdap (Adacel) 11/07/2021 Tdap (Boostrix) 03/08/2024, 3(Deferred: - Patient received Tdap in October 2021.) Tdap (Generic) 06/17/2009,05/28/2008 Typhoid (Typhim ) 06/17/2009,05/04/2004 Typhoid Oral (Vivotif) 03/24/2002 Yellow Fever (YF- Vax) 09/25/1998 Family History Medical History Relation Comments Lung Cancer Father brain tumor Mother car accident Sister Relation Status Comments Father (Age 73) Mother (Age 49) Sister (Age 39) Social History Tobacco Use Types Packs/Day Years Used Date Smoking Tobacco: Former Smokeless Tobacco: Former Chew Tobacco Cessation:Counseling Given: No Comments:no hx smoker Alcohol Use Standard Drinks/Week [...] place to sleep or slept in a custodial (including now)? No 01/09/2023 Sex and Gender Information Value Date Recorded Sex Assigned at Male 06/17/2024 5:08 PM MEDICAL DOCTOR MD Legal Sex Male 7:26 PM CDT Gender Identity Male 09/15/2021 5:59 AM CDT Sexual Orientation Straight 09/15/2021 5: 59 AM CDT Occupation Industry Job Start Date Job End Date Not on file Not on file Not on file Not on file Last Filed Vital Signs Vital Sign Reading Time Taken Comments Blood Pressure 179/101 06/30/2024 9:46 AM MEDICAL DOCTOR MD Pulse 60 06/30/2024 9:46 AM MEDICAL DOCTOR MD Temperature 36.7 C (98 F) 06/30/2024 8:12 AM MEDICAL DOCTOR MD Respiratory Rate 18 06/30/2024 8:12 AM MEDICAL DOCTOR MD Oxygen Saturation 100% 06/30/2024 8:14 AM MEDICAL DOCTOR MD Inhaled Oxygen Concentration - - Weight 127 kg (279 lb 15.8 oz) 06/30/2024 8:12 A M MEDICAL DOCTOR MD Height 177.8 cm (5' 10 ) 06/30/2024 8:12 AM MEDICAL DOCTOR MD Body Mass Index 40.17 06/30/2024 8:12 AM MEDICAL DOCTOR MD Plan of Treatment Health Maintenance Due Date Last Done Comments Colorectal Cancer Screening Colonoscopy (10 Years) 1955 Hepatitis C 1972 Zoster Vaccines (1 of 2) 2004 Pneumococcal Vaccine: 65+ Years (2 of 2 - PCV) 08/27/2011 08/26/2010 RSV Immunization or 60+ Years (1 - Risk 60-74 years 1-dose series) 2014 Annual Medicare Wellness Visit 10/27/2021 10/26/2020 ASCVD LDL 06/05/2023 06/05/2022, 05/0 07/2020, 01/08/2018 COVID-19 Vaccine (3 - season) 2024 11/08/2020, 10/11/2020 Influenza Adult (#1) 2024 03/19/2018, 03/19/2018, 05/09/2015, Additional history exists PHQ-2 (Physician [place]) 05/28/2024 09/28/2022 DTaP, Tdap and Td Vaccines (5 - Td or Tdap) 03/08/2034 03/08/2024, 11/07/2021, 06/17/2009, Additional history exists Meningococcal Vaccine Aged Out 03/24/2002 No shakila emmy eligible based on patient's age to complete this topic AAA SCREENING Completed 03/08/2024, 12/26, 01/05/2021, Additional history exists Meningococcal B Vaccine Aged Out No l onger eligible based on patient's age to complete this topic RSV Immunizations Under 20 Months Aged Out No longer eligible based on patient's age to complete this topic Procedures Procedure Name Priority Date/Time Associated Diagnosis Comments CT LUMB SPINE WO CON STAT 06/29/2024 10:51 PM MEDICAL DOCTOR MD ECG 12-LEAD Routine 06/29/2024 10:27 PM MEDICAL DOCTOR MD LIPASE STAT 06/29/2024 10:24 PM MEDICAL DOCTOR MD COMPREHENSIVE METABOLIC PANEL STAT 06/29/2024 10:24 PM MEDICAL DOCTOR MD CBC W/DIFF AUTOMATED STAT 06/29/2024 10:24 PM MEDICAL DOCTOR MD DRUG SCREEN RAPID STAT 06/17/2024 6:4 4 PM MEDICAL DOCTOR MD URINALYSIS, AUTO, COMPLETE STAT 06/17/2024 6:44 PM MEDICAL DOCTOR MD CORONAVIRUS (COVID 19) STAT 06/17/2024 5:34 PM MEDICAL DOCTOR MD THYROXINE, FREE (FT4) STAT 06/17/2024 5:34 PM MEDICAL DOCTOR MD TSH W/REFLEX STAT 06/17/2024 5:34 PM MEDICAL DOCTOR MD SALICYLATE STAT 06/17/2024 5:34 PM MEDICAL DOCTOR MD ACETAMINOPHEN STAT 06/17/2024 5:34 PM MEDICAL DOCTOR MD ETHANOL STAT 06/17/2024 5:34 PM MEDICAL DOCTOR MD COMPREHENSIVE METABOLIC PANEL STAT 06/17/2024 5:34 PM MEDICAL DOCTOR MD CBC W/DIFF AUTOMATED STAT 06/17/2024 5:34 PM MEDICAL DOCTOR MD ECG 12-LEAD STAT 06/17/2024 5:21 PM MEDICAL DOCTOR MD ECG 12-LEAD STAT 05/20/2024 5:41 AM MEDICAL DOCTOR MD MAGNESIUM Routine 05/20/2024 5:33 AM MEDICAL DOCTOR MD TROPONIN, QUANT Routine 05/20/2024 5:33 AM MEDICAL DOCTOR MD CORONAVIRUS (COVID 19) STAT 05/19/2024 7:31 PM MEDICAL DOCTOR MD DRUG SCREEN RAPID STAT 05/19/2024 5:3 0 PM MEDICAL DOCTOR MD HC URINALYSIS AUTO W/O MICRO STAT 05/19/2024 5:30 PM MEDICAL DOCTOR MD ECG 12-LEAD STAT 05/19/2024 5:09 PM MEDICAL DOCTOR MD SALICYLATE STAT 05/19/2024 5:08 PM MEDICAL DOCTOR MD THYROID STIM HORMONE TSH STAT 05/19/2024 5:08 PM MEDICAL DOCTOR MD ACETAMINOPHEN STAT 05/19/2024 5:08 PM MEDICAL DOCTOR MD ETHANOL STAT 05/19/2024 5:08 PM MEDICAL DOCTOR MD COMPREHENSIVE METABOLIC PANEL STAT 05/19/2024 5:08 PM MEDICAL DOCTOR MD CBC W/DIFF AUTOMATED STAT 05/19/2024 5:08 PM MEDICAL DOCTOR MD DRUG SCREEN RAPID STAT 05/18/2024 9:2 5 PM MEDICAL DOCTOR MD URINALYSIS, AUTO, COMPLETE STAT 05/18/2024 9:25 PM MEDICAL DOCTOR MD CORONAVIRUS (COVID 19) STAT 05/18/2024 8:40 PM MEDICAL DOCTOR MD SALICYLATE STAT 05/18/2024 8:35 PM MEDICAL DOCTOR MD ACETAMINOPHEN STAT 05/18/2024 8:35 PM MEDICAL DOCTOR MD ETHANOL STAT 05/18/2024 8:35 PM MEDICAL DOCTOR MD COMPREHENSIVE METABOLIC PANEL STAT 05/18/2024 8:35 PM MEDICAL DOCTOR MD CBC W/DIFF AUTOMATED STAT 05/18/2024 8:35 PM MEDICAL DOCTOR MD ECG 12-LEAD Routine 05/18/2024 8:[address] ABD+PEL WO CON STAT 03/08/2024 5:3 2 PM CDT LIPID PANEL Routine 06/05/2022 2:09 PM MEDICAL DOCTOR MD Mixed hyperlipidemia from Last 3 Months or Most Recently Relevant to Health Maintenance Results * CT LUMB SPINE WO CON (06/29/2024 10:51 PM MEDICAL DOCTOR MD) Anatomical Region Laterality Modality Spine Computed Tomogra phy 06/29/2024 11:1 0 PM MEDICAL DOCTOR MD Impressions 06/29/2024 11:12 PM MEDICAL DOCTOR MD IMPRESSION: 1. Multilevel degenerative changes with no acute traumatic abnormality of the lumbar spine. Referred By: Interpreted By: Karthik Lozada MD, 06/29/2024 11:10 PM Narrative 06/29/2024 11:12 PM MEDICAL DOCTOR MD [facility] [address] [place] [address] Examination: CT lumbar spine without contrast Exam Date/Time: 06/29/2024 10:08 PM Reason For Exam: fall Fall, lumbar pain, unsteady gait Comparison: CT lumbar spine 03/08/2024 Technique: Axial CT scan of the lumbar spine was obtained without the use of IV contrast agent. Subsequent coronal and sagittal reformatted sequences are created for evaluation. A dose lowering technique was used for this procedure, which may include, but is not limited to, dose reduction technique, automated exposure control, iterative reconstruction, ALARA (As Low As Reasonably Achievable), or Image Gently techniques. Findings: Visualized ascending aorta and iliac arteries are normal in caliber throughout. Mild atherosclerotic disease. No hydronephrosis on either side. No significant paravertebral soft tissue structural abnormalities. There are 5 nonrib-bearing lumbar-type vertebral bodies. Multilevel endplate osteophytes. Multilevel facet disease. Vertebral body heights and alignment are stable from prior exam. No acute fracture or dislocation. Visualized sacrum is intact. ===== Procedure Note Karthik Lozada MD - 06/29/2024 [facility] [address] [place] [id number] Examination: CT lumbar spine without contrast Exam Date/Time: 06/29/2024 10:08 PM Reason For Exam: fall Fall, lumbar pain, unsteady gait Comparison: CT lumbar spine 03/08/2024 Technique: Axial CT scan of the lumbar spine was obtained without the useof IV contrast agent. Subsequent coronal and sagittal reformattedsequences are created for evaluation. A dose lowering technique was usedfor this procedure, which may include, but is not limited to, dosereduction technique, automated exposure control, iterative reconstruction,ALARA (As Low As Reasonably Achievable), or Image Gently techniques. Findings: Visualized ascending aorta and iliac arteries are normal in caliberthroughout. Mild atherosclerotic disease. No hydronephrosis on eitherside. No significant paravertebral soft tissue structural abnormalities.There are 5 nonrib-bearing lumbar-type vertebral bodies. Multilevelendplate osteophytes. Multilevel facet disease. Vertebral body heightsand alignment are stable from prior exam. No acute fracture ordislocation. Visualized sacrum is intact. ===== IMPRESSION: 1. Multilevel degenerative changes with no acute traumatic abnormality ofthe lumbar spine. Referred By: Interpreted By: Karthik Lozada MD, 06/29/2024 11:10 PM us Johnnie Cervantes MD CT Final Resul t * ECG 12 lead (06/29/2024 10:27 PM MEDICAL DOCTOR MD) Only the most recent of5 resultswithin the time period is included. 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1955 Requested By: JOHNNIE CERVANTES Order Number: [id number] Reading MD: Rodolfo Huerta Measurements Intervals [place] Rate: 60 P: 43 [place]: 155 QRS: -58 QRSD: 133 T: 38 QT: 400 QTc: 402 Interpretive Statements SINUS RHYTHM RIGHT BUNDLE BRANCH BLOCK [120+ ms QRS DURATION, UPRIGHT V1, 40+ ms S IN I/aVL/V4/V5/V6] LEFT ANTERIOR FASCICULAR BLOCK [QRS AXIS <= -45, QR IN I, RS IN II] Compared to ECG 06/17/2024 17:21:51 Sinus bradycardia no longer present Ventricular premature complex(es) no longer present CAL DOCTOR MD Procedure Note Rodolfo Huerta MD - 06/29/2024 [facility] Test Date: 2024-06-29 Pat Name: BRITTANY CAMPOVERDE Department: 85 Room: EXAM 404 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1955 Requested By: JOHNNIE CERVANTES Order Number: [id number] Reading MD: Rodolfo Huerta Measurements Intervals [place] Rate: 60 P: 43 [place]: 155 QRS: -58 QRSD: 133 T: 38 QT: 400 QTc: 402 Interpretive Statements SINUS RHYTHM RIGHT BUNDLE BRANCH BLOCK [120+ ms QRS DURATION, UPRIGHT V1, 40+ ms SIN I/aVL/V4/V5/V6] LEFT ANTERIOR FASCICULAR BLOCK [QRS AXIS <= -45, QR IN I, RS IN II] Compared to ECG 06/17/2024 17:21:51 Sinus bradycardia no longer present Ventricular premature complex(es) no longer present CAL DOCTOR MD us Johnnie Cervantes MD ECG ORDERABLES Final Resul t [facility] ([facility]) RAD * (ABNORMAL) COMPREHENSIVE METABOLIC PANEL (06/29/2024 10:24 PM MEDICAL DOCTOR MD) Only the most recent of4 resultswithin the time period is included. [facility] GLUCOSE 112(H) 70 - 99 MG/DL 06/29/2024 11:02 PM MEDICAL DOCTOR MD [facility] BUN 16 7 - 18 MG/DL 06/29/2024 11:02 PM [facility] CREATININE S/P/B 1.14 0.7 - 1.3 MG/DL 06/29/2024 11:02 PM MEDICAL DOCTOR MD [facility] SODIUM S/P/B 141 136 - 145 MMOL/L 06/29/2024 11:02 PM [facility] POTASSIUM S/P/B 3.3(L) 3.5 - 5.1 MMOL/L 06/29/2024 11:02 PM [facility] CHLORIDE S/P/B 103 100 - 108 MMOL/L 06/29/2024 11:02 PM [facility] CO2 29.4 21 - 32 MMOL/L 06/29/2024 11:02 PM [facility] CALCIUM S/P/B 9.3 8.5 - 10.1 MG/DL 06/29/2024 11:02 PM [facility] BILIRUBIN TOTAL S/P/B 0.5 0.2 - 1.2 MG/DL 06/29/2024 11:02 PM [facility] TOTAL PROTEIN S/P/B 7.3 6.4 - 8.2 G/DL 06/29/2024 11:02 PM [facility] ALBUMIN S/P/B 3.9 3.4 - 5.0 G/DL 06/29/2024 11:02 PM [facility] AST 21 15 - 37 U/L 06/29/2024 11:02 PM [facility] ALT 25 16 - 60 U/L 06/29/2024 11:02 PM [facility] ALKALINE PHOSPHATASE S/P/B 103 50 - 136 U/L 06/29/2024 11:02 PM [facility] ANION GAP 8.6 5 - 15 MMOL/L 06/29/2024 11:02 PM [facility] BUN CREATININE RATIO 14.0 6 - 26 06/29/2024 11:02 PM [facility] A/G RATIO 1.1 1.0 - 2.0 RATIO 06/29/2024 11:02 PM [facility] GFR ESTIMATE 69(L) >90 ML/MIN/1.7 3 M2 06/29/2024 11:02 PM [facility] Comment: NOTE: eGFR is not calculated for patients <18 years of age. This is an estimated GFR calculation using the new CKD EPI creatinine equation without race and so does not require a correction factor for race. This estimated GFR should not be used for calculating drug doses. 06/29/2024 10:2 4 PM MEDICAL DOCTOR MD us Johnnie Cervantes MD LABORATORY Final Resul t [facility] [address] [place] [address], [place] [phone] * (ABNORMAL) CBC W/DIFF AUTOMATED (06/29/2024 10:24 PM MEDICAL DOCTOR MD) Only the most recent of4 resultswithin the time period is included. WBC 11.93(H) 4.4 - 11.0 x10'3/uL 06/29/2024 10:38 PM [facility] RBC 4.83 4.50 - 5.90 x10'6/uL 06/29/2024 10:38 PM [facility] [facility] HGB 13.8(L) 14.0 - 17.5 G/DL 06/29/2024 10:38 PM [facility] HCT 41.5 41.5 - 50.4 % 06/29/2024 10:38 PM [facility] MCV 85.9 80.0 - 96.0 FL 06/29/2024 10:38 PM [facility] MCH 28.6 26.5 - 31.4 PG 06/29/2024 10:38 PM [facility] MCHC 33.3 31.9 - 34.8 G/DL 06/29/2024 10:38 PM [facility] RDW 13.5 12.3 - 14.3 % 06/29/2024 10:38 PM [facility] PLT 184 151 - 353 x10'3/uL 06/29/2024 10:38 PM [facility] MPV 10.9 9.7 - 11.9 FL 06/29/2024 10:38 PM [facility] RBC MORPHOLOGY NORMAL 06/29/2024 10:38 PM [facility] PLT MORPH. NORMAL 06/29/2024 10:38 PM [facility] WBC MORPHOLOGY NORMAL 06/29/2024 10:38 PM [facility] LYMPHOCYTES % 12.5(L) 15.8 - 45.0 % 06/29/2024 10:38 PM [facility] NEUTROPHILS % 77.9(H) 42.1 - 71.9 % 06/29/2024 10:38 PM [facility] MONOCYTES % 7.1 5.7 - 12.5 % 06/29/2024 10:38 PM [facility] EOSINOPHILS 1.8 0.0 - 5.6 % 06/29/2024 10:38 PM [facility] BASOPHILS 0.4 0.0 - 1.3 % 06/29/2024 10:38 PM [facility] ABS. NEUTROPHILS 9.29(H) 1.40 - 6.00 x10'3/uL 06/29/2024 10:38 PM [facility] IMMATURE GRANS % 0.3 0.0 - 0.5 % 06/29/2024 10:38 PM [facility] ABS. LYMPHOCYTES 1.49 0.80 - 4.70 x10'3/uL 06/29/2024 10:38 PM MEDICAL DOCTOR MD [facility] 06/29/2024 10:2 4 PM MEDICAL DOCTOR MD us Johnnie Cervantes MD LABORATORY Final Resul t [facility] [address] [place] [address], [place] [phone] * (ABNORMAL) LIPASE (06/29/2024 10:24 PM MEDICAL DOCTOR MD) LIPASE 14(L) 16 - 77 UNITS/L 06/29/2024 11:02 PM MEDICAL DOCTOR MD [facility] 06/29/2024 10:2 4 PM MEDICAL DOCTOR MD us Johnnie Cervantes MD LABORATORY Final Resul t Performing Organization Address City/[facility]/ZIP Co de Phone Number [facility] [address] [place] [address], [place] [phone] * DRUG SCREEN RAPID (06/17/2024 6:44 PM MEDICAL DOCTOR MD) Only the most recent of3 resultswithin the time period is included. AMPHETAMINE (U) NONE DETECTED NONE DETECTED 06/17/2024 7:01 PM [facility] BARBITURATES SCREEN (U) NONE DETECTED NONE DETECTED 06/17/2024 7:01 PM [facility] BENZODIAZEPINES SCREEN (U) NONE DETECTED NONE DETECTED 06/17/2024 7:01 PM [facility] BUPRENORPHINE SCREEN (U) NONE DETECTED NONE DETECTED 06/17/2024 7:01 PM [facility] COCAINE METABOLITES (U) NONE DETECTED NONE DETECTED 06/17/2024 7:01 PM [facility] METHAMPHETAMINE (U) NONE DETECTED NONE DETECTED 06/17/2024 7:01 PM [facility] METHADONE (U) NONE DETECTED NONE DETECTED 06/17/2024 7:01 PM MEDICAL DOCTOR MD [facility] OPIATE SCREEN (U) NONE DETECTED NONE DETECTED 06/17/2024 7:01 PM [facility] OXYCODONE SCREEN (U) NONE DETECTED NONE DETECTED 06/17/2024 7:01 PM MEDICAL DOCTOR MD [facility] PHENCYCLIDINE PCP (U) NONE DETECTED NONE DETECTED 06/17/2024 7:01 PM [facility] CANNABINOIDS SCREEN (U) NONE DETECTED NONE DETECTED 06/17/2024 7:01 PM [facility] TRICYCLIC ANTIDEPRESSANT SCREEN (U) NONE DETECTED NONE DETECTED 06/17/2024 7:01 PM [facility] Comment: NOTE: RESULTS OF THIS DRUG SCREEN SHOULD BE USED FOR MEDICAL PURPOSES ONLY AND NOT FOR LEGAL OR EMPLOYEMENT PURPOSES. MEDICATIONS CONTAINING EPHEDRINE MAY CAUSE FALSE POSITIVE AMPHETAMINE. AMPHETAMINE- 500 NG/ML BARBITURATE- 200 NG/ML BENZODIAZEPINE- 150 NG/ML BUPRENORPHINE- 10 NG/ML COCAINE- 150 NG/ML METHAMPHETAMINES- 500 NG/ML METHADONE- 200 NG/ML OPIATE- 100 NG/ML OXYCODONE- 100 NG/ML PCP- 25 NG/ML THC- 50 NG/ML TCA- 300 NG/ML URINE SPECIMEN / Unknown 06/17/2024 6:44 PM MEDICAL DOCTOR MD Troy Quevedo MD URINE ORDERABLES Final Result [facility] [address] [place] [address], * Urinalysis, Auto, Complete (06/17/2024 6:44 PM MEDICAL DOCTOR MD) Only the most recent of2 resultswithin the time period is included. COLOR (U) YELLOW 06/17/2024 6:56 PM MEDICAL DOCTOR MD [facility] TRANSPARENCY CLEAR 06/17/2024 6:56 PM [facility] SPECIFIC GRAVITY (U) 1.025 1.000 - 1.030 06/17/2024 6:56 PM [facility] U PH 5.5 5.0 - 9.0 06/17/2024 6:56 PM [facility] LEUKOCYTES (U) NEGATIVE NEGATIVE 06/17/2024 6:56 PM [facility] NITRITES NEGATIVE NEGATIVE 06/17/2024 6:56 PM [facility] PROTEIN RANDOM (U) NEGATIVE NEGATIVE 06/17/2024 6:56 PM [facility] GLUCOSE (U) NEGATIVE NEGATIVE 06/17/2024 6:56 PM [facility] KETONES MG/DL (U) NEGATIVE NEGATIVE 06/17/2024 6:56 PM [facility] BILIRUBIN (U) NEGATIVE NEGATIVE 06/17/2024 6:56 PM [facility] BLOOD (U) NEGATIVE NEGATIVE 06/17/2024 6:56 PM [facility] WBC/HPF 0-5 0 - 5 /HPF 06/17/2024 6:56 PM [facility] RBC/HPF 0-5 0 - 5 /HPF 06/17/2024 6:56 PM [facility] EPI/HPF RARE /HPF 06/17/2024 6:56 PM [facility] BACTERIA (U) RARE /HPF 06/17/2024 6:56 PM [facility] URINE SPECIMEN OBTAINED BY CLEAN CATCH PROCEDURE / Unknown 06/17/2024 6:44 PM MEDICAL DOCTOR MD Troy Quevedo MD URINE ORDERABLES Final Result [facility] [address] [place] [address], [place] [phone] * CORONAVIRUS (COVID-19) MOLECULAR (06/17/2024 5:34 PM MEDICAL DOCTOR MD) Only the most recent of3 resultswithin the time period is included. Pathologist [facility] CORONAVIRUS SARS COV 2 RNA NEGATIVE NEGATIVE 06/17/2024 5:58 PM MEDICAL DOCTOR MD [facility] Comment: NEGATIVE RESULTS DO NOT RULE OUT COVID 19 AND SHOULD NOT BE USED THE SOLE BASIS FOR TREATMENT OR PATIENT MANAGEMENT DECISIONS, INCLUDING INFECTION CONTROL DECISIONS. NEGATIVE RESULTS SHOULD BE CONSIDERED IN THE CONTEXT OF A PATIENT'S RECENT EXPOSURES, HISTORY AND THE PRESENCE OF CLINICAL SIGNS AND SYMPTOMS CONSISTENT WITH COVID 19. THE ID NOW COVID-19 2.0 TEST HAS BEEN AUTHORIZED BY THE FDA UNDER EAU FOR USE BY AUTHORIZED LABORATORIES. PERFORMED BY NUCLEIC ACID AMPLIFICATION FOR MOLECULAR QUALITATIVE DETECTION OF SARS-COV-2. SPECIMEN TYPE NASAL 06/17/2024 5:37 PM MEDICAL DOCTOR MD [facility] NASOPHARYNGEAL SWAB / Unknown 06/17/2024 5:34 PM MEDICAL DOCTOR MD us Troy Quevedo MD MICROBIOLOGY - GENERAL ORDERABL ES Final Result Performing Organization Address City/[facility]/ZIP Co de Phone Number [facility] [address] [place] [address], [place] [phone] * (ABNORMAL) TSH W/REFLEX (06/17/2024 5:34 PM MEDICAL DOCTOR MD) Pathologist [facility] TSH 0.016(L) 0.358 - 3.74 uIU/ML 06/17/2024 6:28 PM MEDICAL DOCTOR MD [facility] Comment: HIGH DOSES OF BIOTIN MAY INTERFERE WITH THIS TEST RESULT. CORRELATION TO CLINICAL HISTORY AND PRESENTATION RECOMMENDED. 06/17/2024 5:34 PM MEDICAL DOCTOR MD us Troy Quevedo MD LABORATORY Final Result [facility] [address] [place] [address], [place] [phone] * THYROXINE, FREE (FT4) (06/17/2024 5:34 PM MEDICAL DOCTOR MD) FREE T4 0.88 0.76 - 1.46 NG/DL 06/17/2024 6:44 PM MEDICAL DOCTOR MD [facility] 06/17/2024 5:34 PM MEDICAL DOCTOR MD us Troy Quevedo MD LABORATORY Final Result [facility] [address] [place] [address], [place] [phone] * SALICYLATE (06/17/2024 5:34 PM MEDICAL DOCTOR MD) Only the most recent of3 resultswithin the time period is included. SALICYLATES 3.6 2.8 - 20.0 MG/DL 06/17/2024 5:52 PM MEDICAL DOCTOR MD [facility] Comment: THERAPEUTIC: 2.8-20.0 Toxic Level: >=30 06/17/2024 5:34 PM MEDICAL DOCTOR MD us Troy Quevedo MD LABORATORY Final Result [facility] [address] [place] [address], [place] [phone] * ETHANOL (06/17/2024 5:34 PM MEDICAL DOCTOR MD) Only the most recent of3 resultswithin the time period is included. ALCOHOL S/P/B <0.003 <0.003 G/DL 06/17/2024 6:21 PM MEDICAL DOCTOR MD [facility] 06/17/2024 5:34 PM MEDICAL DOCTOR MD us Troy Quevedo MD LABORATORY Final Result Performing Organization Address [facility] Co de Phone Number [facility] [address] [place] [address], * (ABNORMAL) ACETAMINOPHEN (06/17/2024 5:34 PM MEDICAL DOCTOR MD) Only the most recent of3 resultswithin the time period is included. ACETAMINOPHEN S/P/B <0.5(L) 10.0 - 30.0 MCG/ML 06/17/2024 6:44 PM MEDICAL DOCTOR MD [facility] Comment: THERAPEUTIC: 10-30 TOXIC: >200 06/17/2024 5:34 PM MEDICAL DOCTOR MD Troy Quevedo MD LABORATORY Final Result Performing Organization Address [facility]/[place] de Phone Number [facility] [address] [place] [address], * TROPONIN, QUANT (05/20/2024 5:33 AM MEDICAL DOCTOR MD) TROPONIN I HIGH SENSITIVITY 11 0 - 75 ng/L 05/20/2024 6:18 AM MEDICAL DOCTOR MD [facility] Comment: HIGH DOSES OF BIOTIN, TROPONIN-SPECIFIC AUTOANTIBODIES, AND ANTIBODY THERAPY CONTAINING HAMA MAY INTERFERE WITH THIS TEST RESULT. CORRELATION TO CLINICAL HISTORY AND PRESENTATION RECOMMENDED. 05/20/2024 5:33 AM MEDICAL DOCTOR MD Troy Quevedo MD LABORATORY Final Result Performing Organization Address [facility] Co de Phone Number [facility] [address] [place] [address], * MAGNESIUM (05/20/2024 5:33 AM MEDICAL DOCTOR MD) MAGNESIUM 1.8 1.8 - 2.4 MG/DL 05/20/2024 6:58 AM MEDICAL DOCTOR MD [facility] 05/20/2024 5:33 AM MEDICAL DOCTOR MD Troy Quevedo MD LABORATORY Final Result [facility] [address] [place] [address], [place] [phone] * URINALYSIS (05/19/2024 5:30 PM MEDICAL DOCTOR MD) COLOR (U) YELLOW 05/19/2024 6:02 PM MEDICAL DOCTOR MD [facility] TRANSPARENCY CLEAR 05/19/2024 6:02 PM [facility] SPECIFIC GRAVITY (U) 1.010 1.000 - 1.030 05/19/2024 6:02 PM [facility] U PH 7.0 5.0 - 9.0 05/19/2024 6:02 PM [facility] LEUKOCYTES (U) NEGATIVE NEGATIVE 05/19/2024 6:02 PM [facility] NITRITES NEGATIVE NEGATIVE 05/19/2024 6:02 PM [facility] PROTEIN RANDOM (U) NEGATIVE NEGATIVE 05/19/2024 6:02 PM [facility] GLUCOSE (U) NEGATIVE NEGATIVE 05/19/2024 6:02 PM [facility] KETONES MG/DL (U) NEGATIVE NEGATIVE 05/19/2024 6:02 PM [facility] BILIRUBIN (U) NEGATIVE NEGATIVE 05/19/2024 6:02 PM [facility] BLOOD (U) NEGATIVE NEGATIVE 05/19/2024 6:02 PM [facility] URINE SPECIMEN OBTAINED BY CLEAN CATCH PROCEDURE / Unknown 05/19/2024 5:30 PM MEDICAL DOCTOR MD us Christi Watson MD URINE ORDERABLES Final Result Performing Organization Address [facility] Co de Phone Number [facility] [address] [place] [address], [place] [phone] * THYROID STIM HORMONE, TSH (05/19/2024 5:08 PM MEDICAL DOCTOR MD) TSH 1.568 0.358 - 3.74 uIU/ML 05/19/2024 6:05 PM MEDICAL DOCTOR MD [facility] Comment: HIGH DOSES OF BIOTIN MAY INTERFERE WITH THIS TEST RESULT. CORRELATION TO CLINICAL HISTORY AND PRESENTATION RECOMMENDED. 05/19/2024 5:08 PM MEDICAL DOCTOR MD Christi Watson MD LABORATORY Final Result Performing Organization Address [facility] Co de Phone Number [facility] [address] [place] [address], [place] [phone] * CT ABD+PEL WO CON (03/08/2024 5:32 PM CDT) Anatomical Region Laterality Modality Abdomen Computed Tomogra phy 03/08/2024 6:43 PM CDT Impressions 03/08/2024 6:53 PM CDT IMPRESSION: 1. Enlarged liver with severe fatty infiltration. 2. Small calcification in the urinary bladder was present previously. Referred By: Interpreted By: Bryan Herzog MD, 03/08/2024 6:43 PM Narrative 03/08/2024 6:53 PM CDT [facility] [address] [facility] [place] [address] EXAM: CT ABD+PEL WO CON DATE: 03/08/2024 COMPARISON: 01/08/2023 INDICATION: Fell out of car, diffuse pain TECHNIQUE: Noncontrast imaging A dose lowering technique was used for this procedure, which may include, but is not limited to, dose reduction technique, automated exposure control, iterative reconstruction, ALARA (As Low As Reasonably Achievable), or Image Gently techniques. FINDINGS: Motion artifact in the lower chest. Small posterior lateral left lower lobe granuloma was better seen previously. Diffuse coronary artery calcifications are more prominent in the left circulation. Severe fatty infiltration of the liver. Enlarged liver at about 23 cm length. No surface nodularity or focal lesion with noncontrast imaging. Normal spleen size with a few calcified granulomas. Normal adrenal glands and pancreas. Normal gallbladder is some mild adjacent fatty sparing. Small left kidney cyst does not need follow-up. No urinary tract obstruction. Small calcification just lateral to the right ureteral insertion is slightly larger and denser at about 3 mm. Normal urinary bladder. Moderate size bilateral fat-containing inguinal hernias. No bowel obstruction. Areas of colonic wall fatty infiltration can be associated with obesity or inflammatory bowel disease. No wall thickening. Normal appendix. Stomach is moderately distended with relatively low-density food. Normal small bowel. No free fluid. Scattered normal size mesenteric lymph nodes. No acute bone findings. Mild and symmetric hip osteoarthritis with joint space reduction and small osteophytes. Old fracture at the right lesser trochanter anteriorly is unchanged. Procedure Note Bryan Herzog MD - 03/08/2024 [facility] [address] [place] [address] EXAM: CT ABD+PEL WO CON DATE: 03/08/2024 COMPARISON: 01/08/2023 INDICATION: Fell out of car, diffuse pain TECHNIQUE: Noncontrast imaging A dose lowering technique was used for this procedure, which may include,but is not limited to, dose reduction technique, automated exposurecontrol, iterative reconstruction, ALARA (As Low As ReasonablyAchievable), or Image Gently techniques. FINDINGS: Motion artifact in the lower chest. Small posterior lateralleft lower lobe granuloma was better seen previously. Diffuse coronaryartery calcifications are more prominent in the left circulation. Severe fatty infiltration of the liver. Enlarged liver at about 23 cmlength. No surface nodularity or focal lesion with noncontrast imaging.Normal spleen size with a few calcified granulomas. Normal adrenal glandsand pancreas. Normal gallbladder is some mild adjacent fatty sparing. Small left kidney cyst does not need follow-up. No urinary tractobstruction. Small calcification just lateral to the right ureteralinsertion is slightly larger and denser at about 3 mm. Normal urinarybladder. Moderate size bilateral fat- containing inguinal hernias. No bowel obstruction. Areas of colonic wall fatty infiltration can beassociated with obesity or inflammatory bowel disease. No wallthickening. Normal appendix. Stomach is moderately distended withrelatively low-density food. Normal small bowel. No free fluid.Scattered normal size mesenteric lymph nodes. No acute bone findings. Mild and symmetric hip osteoarthritis with jointspace reduction and small osteophytes. Old fracture at the right lessertrochanter anteriorly is unchanged. IMPRESSION: 1. Enlarged liver with severe fatty infiltration. 2. Small calcification in the urinary bladder was present previously. Referred By: Interpreted By: Bryan Herzog MD, 03/08/2024 6:43 PM Andrei Jaime MD CT Final Result * (ABNORMAL) LIPID PANEL (06/05/2022 2:09 PM MEDICAL DOCTOR MD) CHOLESTEROL 231(H) <200.0 MG/DL 06/05/2022 3:05 PM [facility] TRIGLYCERIDES 160(H) <150 MG/DL 06/05/2022 3:05 PM [facility] HDL 28(L) >40.0 MG/DL 06/05/2022 3:05 PM [facility] LDL (CALCULATED) 171(H) <100 MG/DL 06/05/2022 3:05 PM [facility] NON HDL CHOLESTEROL 203(H) <130 MG/DL 06/05/2022 3:05 PM [facility] CHOL/HDL RATIO 8.2(H) 0.0 - 4.5 06/05/2022 3:05 PM [facility] VLDL CALCULATION 32 5 - 55 MG/DL 06/05/2022 3:05 PM [facility] LIPID INTERPRETATION 06/05/2022 3:05 PM [facility] Comment: [facility] REPORT RECOMMENDATIONS: ADULT CHILD LOW RISK: CHOLESTEROL <200 <170 TRIGLYCERIDE <150 --- HDL >=60 --- LDL <100 <110 BORDERLINE: CHOLESTEROL 200-239 170-199 TRIGLYCERIDE 150-199 --- HDL 40-59 --- LDL 100-159 110-129 HIGH RISK: CHOLESTEROL >=240 >=200 TRIGLYCERIDE >=200 --- HDL <40 --- LDL >=160 >=130 06/05/2022 2:09 PM MEDICAL DOCTOR MD Estephania Perez [facility] Final Result Performing Organization Address City/State/[facility] Co de Phone Number [facility] [address] [place] [address], from Last 3 Months or Most Recently Relevant to Health Maintenance Insurance MEDICARE [facility] [employer] MEDICARE [facility] Advance Directives * Full Code (Latest Code Status on File) Date Activated Date Inactivated Comments 01/15/2023 3:52 PM 09/29/2023 8:41 PM * Full Code Date Activated Date Inactivated Comments 01/09/2023 10:51 AM 01/10/2023 8:11 PM * Full Code Date Activated Date Inactivated Comments 11/10/2020 3:15 PM 11/11/2020 9:29 PM Care Teams Mannequin Refinisher Relationship Specialty [place] [address] [place] [address] PCP - General FAMILY PRACTICE 07/09/19 Rodolfo Huerta MD [address] [place] [address] [employer] Supervisor CARDIOVASCULAR DISEASE 02/22/18
[2024-07-14 23:26] LABS: Add Urine Microscopic? NO; Appearance Urine Clear (Clear); Bilirubin Urine Negative (Negative); Blood Urine Negative (Negative); Color Urine Yellow (Yellow); Glucose Urine UA Negative (Negative); Ketones Urine Negative (Negative); Leukocyte Esterase Ur Negative LEU/UL (Negative); Nitrate Urine Negative (Negative); Protein Urine Negative (Negative); Specific Grav Ur 1.018 (1.001-1.035); pH Urine 6.5 (5.0-9.0)
[2024-07-14] MEDS: SODIUM CHLORIDE 0.9% IV 1,000 ML 999 ML IV CONT (23:38)
--- OUTSIDE RECORDS SUMMARY | 2024-07-14 23:44 | XMS_ITS | Clinical Summary ---
Author Organization [facility] Address [address] [place] [address] Care Team Providers Care Rail Assembler Name Role Phone Rodolfo Huerta MD Unavailable [phone] Brittany Coleman MD Primary Care Provider [phone] Allergies Active Allergy Reactions Criticality Noted Date [...] (07/10/2024): Rule out alcohol dependence. Alcohol dependence ([facility]/H[facility]) 07/10/2024 Anemia 07/10/2024 Cotton wool spots 07/10/2024 Coronary artery disease 07/10/2024 Effusion of lower leg joint 07/10/2024 Osteoarthrosis 07/10/2024 Fitting and adjustment of hearing aid 07/10/2024 Hepatic dysfunction 07/10/2024 Impaired glucose tolerance 07/10/2024 Incomplete right bundle branch block (RBBB) 06/28 Insomnia, unspecified 07/10/2024 Insomnia 07/10/2024 Left anterior fascicular block (LAFB) 07/10/2024 Major depressive disorder, r ecurrent severe without psychotic features ([facility]) 07/10/2024 Malabsorption of glucose 07/10/2024 Microscopic hematuria 07/10/2024 Major depressive disorder, r ecurrent, moderate ([facility]) 07/10/2024 Myopia 07/10/2024 Occupational disorder 07/10/2024 [...] thoracic back region 07/10/2024 Traumatic brain injury ([facility]) 025 Suicidal ideations 07/10/2024 Unspecified abnormalities of gait and mobility 0 07/10/2024 Unspecified fall, subsequent encounter Unspecified urinary incontinence 07/10/2024 Venous insufficiency (chronic) (peripheral) 06/28 Vitamin D deficiency 07/10/2024 COOPER on CPAP 02/18/2024 Benign prostatic hyperplasia with weak urinary s tream 11/17/2023 SARS-associated coronavirus infection 01/09/2023 Morbid (severe) obesity due to excess calories ([facility]) 06/05/2022 Body mass index (BMI) 40.0-44.9, adult ([facility]) 06/05/2022 Morbid obesity with BMI of 4 0.0-44.9, adult ([facility]) 09/26/2021 Weakness 11/10/2020 Chronic back pain [...] Type Department Care Team Description 07/03/2024 Telephone [facility] Family & Internal [address] [address] Brittany Coleman MD Medication Request 06/30/2024 7:37 AM [facility] - 06/30/2024 12:35 PM [facility] Emergency [facility] Emergency Room [address] [place] [phone] Joanne Conway MD Multiple Falls Discharge Disposition: Home or Self Care (Routine Discharge) 06/29/2024 10:05 PM CARDIAC TECHNOLOGIST - 06/30/2024 12:21 AM [facility] Emergency [facility] Emergency Room [address] [place] [address] Johnnie Cervantes MD Fall (Unwitnessed ground level fall at 0100 this morning) Discharge Disposition: Home or Self Care (Routine Discharge) 06/29/2024 Travel 06/17/2024 5:10 PM [facility] - 06/18/2024 10:25 AM [facility] Emergency [facility] Emergency Room [address] [place] [id number] Troy Quevedo MD Suicidal Ideation Discharge Disposition: Home or Self Care (Routine Discharge) 06/17/2024 Travel 06/10/2024 MyCbrittani Message Enc [facility] Internal [address] [address] [facility] Provider Appointment request 06/10/2024 Telephone [facility] Internal [address] [address] Brittany Coleman MD Appointment Request 06/10/2024 Patient Outreach [address] [phone] Lana Franklin RN Hospital Follow Up (TCM Week # 3- Final) 06/04/2024 Patient Outreach [address] [phone] Madelyn Tillman RN Hospital Follow Up (Call to patient's . ) 06/03/[address] [address] Brittany Coleman MD Appointment Request 05/30/2024 Patient Outreach [address] [phone] Madelyn Tillman RN Hospital Follow Up (Follow up call to the patient. ) 05/29/2024 Scan HEALTH INFO SRVCS Scanned, Doc [facility] 05/29/2024 Minuttat Message Enc [address] [address] [facility] with 05/29/2024 Patient Outreach [address] [address] Lana Franklin RN TCM ([facility] Behavioral health 05/20-05/27) 05/27/2024 Scan HEALTH INFO SRVCS Scanned, Doc [facility] 05/22/2024 Patient Outreach [address] [phone] Lana Franklin RN Hospital Follow Up 05/20/2024 Patient Outreach [address] [phone] Lana Franklin RN Hospital Follow Up (Admission notification. ) 05/19/2024 4:10 PM CARDIAC TECHNOLOGIST - 05/20/2024 12:52 PM [facility] Emergency [facility] Emergency Room [address] [place] [address] Christi Watson MD Sallis, Milton, MD Psychosocial Complaints Discharge Disposition: Psychiatric Hospital 05/18/2024 8:17 PM CARDIAC TECHNOLOGIST - 05/19/2024 8:30 AM [facility] Emergency [facility] Emergency Room [id number] [place] [phone] Johnnie Cervantes MD Suicidal Ideation Discharge Disposition: Home or Self Care (Routine Discharge) 05/18/2024 Travel 05/13/2024 Scan [facility] HEALTH INFO SRVCS Scanned, [facility] 05/12/2024 Scan [facility] HEALTH INFO SRVCS Scanned, [facility] 04/16/2024 Telephone [facility] Family & Internal Medicine [facility] [address] [place] [address] Brittany Coleman MD Question from [...] Sex Assigned at Male 06/17/2024 5:08 PM CARDIAC TECHNOLOGIST Legal Sex Male 7:26 PM CDT Gender Identity Male 09/15/2021 5:59 AM CDT Sexual Orientation Straight 09/15/2021 5: 59 AM CDT Occupation Industry Job Start Date Job End Date Not on file Not on file Not on file Not on file Last Filed Vital Signs Vital Sign Reading Time Taken Comments Blood Pressure 179/101 06/30/2024 9:46 AM CARDIAC TECHNOLOGIST Pulse 60 06/30/2024 9:46 AM CARDIAC TECHNOLOGIST Temperature 36.7 C (98 F) 06/30/2024 8:12 AM CARDIAC TECHNOLOGIST Respiratory Rate 18 06/30/2024 8:12 AM CARDIAC TECHNOLOGIST Oxygen Saturation 100% 06/30/2024 8:14 AM CARDIAC TECHNOLOGIST Inhaled Oxygen Concentration - - Weight 127 kg (279 lb 15.8 oz) 06/30/2024 8:12 A M CARDIAC TECHNOLOGIST Height 177.8 cm (5' 10 ) 06/30/2024 8:12 AM CARDIAC TECHNOLOGIST Body Mass Index 40.17 06/30/2024 8:12 AM CARDIAC TECHNOLOGIST Plan of Treatment Health Maintenance Due Date [...] 03/19/2018, 05/09/2015, Additional history exists PHQ-2 (Physician [place]) 05/28/2024 09/28/2022 DTaP, Tdap and Td Vaccines [...] SPINE WO CON STAT 06/29/2024 10:51 PM CARDIAC TECHNOLOGIST ECG 12-LEAD Routine 06/29/2024 10:27 PM CARDIAC TECHNOLOGIST LIPASE STAT 06/29/2024 10:24 PM CARDIAC TECHNOLOGIST COMPREHENSIVE METABOLIC PANEL STAT 06/29/2024 10:24 PM CARDIAC TECHNOLOGIST CBC W/DIFF AUTOMATED STAT 06/29/2024 10:24 PM CARDIAC TECHNOLOGIST DRUG SCREEN RAPID STAT 06/17/2024 6:4 4 PM CARDIAC TECHNOLOGIST URINALYSIS, AUTO, COMPLETE STAT 06/17/2024 6:44 PM CARDIAC TECHNOLOGIST CORONAVIRUS (COVID 19) STAT 06/17/2024 5:34 PM CARDIAC TECHNOLOGIST THYROXINE, FREE (FT4) STAT 06/17/2024 5:34 PM CARDIAC TECHNOLOGIST TSH W/REFLEX STAT 06/17/2024 5:34 PM CARDIAC TECHNOLOGIST SALICYLATE STAT 06/17/2024 5:34 PM CARDIAC TECHNOLOGIST ACETAMINOPHEN STAT 06/17/2024 5:34 PM CARDIAC TECHNOLOGIST ETHANOL STAT 06/17/2024 5:34 PM CARDIAC TECHNOLOGIST COMPREHENSIVE METABOLIC PANEL STAT 06/17/2024 5:34 PM CARDIAC TECHNOLOGIST CBC W/DIFF AUTOMATED STAT 06/17/2024 5:34 PM CARDIAC TECHNOLOGIST ECG 12-LEAD STAT 06/17/2024 5:21 PM CARDIAC TECHNOLOGIST ECG 12-LEAD STAT 05/20/2024 5:41 AM CARDIAC TECHNOLOGIST MAGNESIUM Routine 05/20/2024 5:33 AM CARDIAC TECHNOLOGIST TROPONIN, QUANT Routine 05/20/2024 5:33 AM CARDIAC TECHNOLOGIST CORONAVIRUS (COVID 19) STAT 05/19/2024 7:31 PM CARDIAC TECHNOLOGIST DRUG SCREEN RAPID STAT 05/19/2024 5:3 0 PM CARDIAC TECHNOLOGIST HC URINALYSIS AUTO W/O MICRO STAT 05/19/2024 5:30 PM CARDIAC TECHNOLOGIST ECG 12-LEAD STAT 05/19/2024 5:09 PM CARDIAC TECHNOLOGIST SALICYLATE STAT 05/19/2024 5:08 PM CARDIAC TECHNOLOGIST THYROID STIM HORMONE TSH STAT 05/19/2024 5:08 PM CARDIAC TECHNOLOGIST ACETAMINOPHEN STAT 05/19/2024 5:08 PM CARDIAC TECHNOLOGIST ETHANOL STAT 05/19/2024 5:08 PM CARDIAC TECHNOLOGIST COMPREHENSIVE METABOLIC PANEL STAT 05/19/2024 5:08 PM CARDIAC TECHNOLOGIST CBC W/DIFF AUTOMATED STAT 05/19/2024 5:08 PM CARDIAC TECHNOLOGIST DRUG SCREEN RAPID STAT 05/18/2024 9:2 5 PM CARDIAC TECHNOLOGIST URINALYSIS, AUTO, COMPLETE STAT 05/18/2024 9:25 PM CARDIAC TECHNOLOGIST CORONAVIRUS (COVID 19) STAT 05/18/2024 8:40 PM CARDIAC TECHNOLOGIST SALICYLATE STAT 05/18/2024 8:35 PM CARDIAC TECHNOLOGIST ACETAMINOPHEN STAT 05/18/2024 8:35 PM CARDIAC TECHNOLOGIST ETHANOL STAT 05/18/2024 8:35 PM CARDIAC TECHNOLOGIST COMPREHENSIVE METABOLIC PANEL STAT 05/18/2024 8:35 PM CARDIAC TECHNOLOGIST CBC W/DIFF AUTOMATED STAT 05/18/2024 8:35 PM CARDIAC TECHNOLOGIST ECG 12-LEAD Routine 05/18/2024 8:[address] ABD+PEL WO CON STAT 03/08/2024 5:3 2 PM CDT LIPID PANEL Routine 06/05/2022 2:09 PM CARDIAC TECHNOLOGIST Mixed hyperlipidemia from Last 3 Months or Most Recently Relevant to Health Maintenance Results * CT LUMB SPINE WO CON (06/29/2024 10:51 PM CARDIAC TECHNOLOGIST) Anatomical Region Laterality Modality Spine Computed Tomogra phy 06/29/2024 11:1 0 PM CARDIAC TECHNOLOGIST Impressions 06/29/2024 11:12 PM CARDIAC TECHNOLOGIST IMPRESSION: 1. Multilevel degenerative changes with no acute traumatic abnormality of the lumbar spine. Referred By: Interpreted By: Karthik Lozada MD, 06/29/2024 11:10 PM Narrative 06/29/2024 11:12 PM CARDIAC TECHNOLOGIST [facility] [address] [place] [address] Examination: CT lumbar spine without contrast Exam [...] Procedure Note Karthik Lozada MD - 06/29/2024 [facility] [address] [place] [id number] Examination: CT lumbar spine without contrast Exam [...] * ECG 12 lead (06/29/2024 10:27 PM CARDIAC TECHNOLOGIST) Only the most recent of5 resultswithin the time period is included. 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1955 Requested By: JOHNNIE CERVANTES Order Number: [id number] Reading MD: Rodolfo Huerta Measurements Intervals [place] Rate: 60 P: 43 CA: 155 QRS: -58 QRSD: 133 T: 38 QT: 400 QTc: 402 Interpretive Statements SINUS RHYTHM RIGHT BUNDLE BRANCH BLOCK [120+ ms QRS DURATION, UPRIGHT V1, 40+ ms S IN I/aVL/V4/V5/V6] LEFT ANTERIOR FASCICULAR BLOCK [QRS AXIS <= -45, QR IN I, RS IN II] Compared to ECG 06/17/2024 17:21:51 Sinus bradycardia no longer present Ventricular premature complex(es) no longer present IAC TECHNOLOGIST Procedure Note Rodolfo Huerta MD - 06/29/2024 [facility] Test Date: 2024-06-29 Pat Name: BRITTANY CAMPOVERDE Department: 85 Room: EXAM 404 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: Male 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1955 Requested By: JOHNNIE CERVANTES Order Number: [id number] Reading MD: Rodolfo Huerta Measurements Intervals [place] Rate: 60 P: 43 CA: 155 QRS: -58 QRSD: 133 T: 38 QT: 400 QTc: 402 Interpretive Statements SINUS RHYTHM RIGHT BUNDLE BRANCH BLOCK [120+ ms QRS DURATION, UPRIGHT V1, 40+ ms SIN I/aVL/V4/V5/V6] LEFT ANTERIOR FASCICULAR BLOCK [QRS AXIS <= -45, QR IN I, RS IN II] Compared to ECG 06/17/2024 17:21:51 Sinus bradycardia no longer present Ventricular premature complex(es) no longer present IAC TECHNOLOGIST us Johnnie Cervantes MD ECG ORDERABLES Final Resul t [facility] ([facility]) RAD * (ABNORMAL) COMPREHENSIVE METABOLIC PANEL (06/29/2024 10:24 PM CARDIAC TECHNOLOGIST) Only the most recent of4 resultswithin the time period is included. [facility] GLUCOSE 112(H) 70 - 99 MG/DL 06/29/2024 11:02 PM CARDIAC TECHNOLOGIST [facility] BUN 16 7 - 18 MG/DL 06/29/2024 11:02 PM [facility] CREATININE S/P/B 1.14 0.7 - 1.3 MG/DL 06/29/2024 11:02 PM CARDIAC TECHNOLOGIST [facility] SODIUM S/P/B 141 136 - 145 MMOL/L 06/29/2024 11:02 PM [facility] POTASSIUM S/P/B 3.3(L) 3.5 - 5.1 MMOL/L 06/29/2024 11:02 PM [facility] CHLORIDE S/P/B 103 100 - 108 MMOL/L 06/29/2024 11:02 PM [facility] CO2 29.4 21 - 32 MMOL/L 06/29/2024 11:02 PM [facility] CALCIUM S/P/B 9.3 8.5 - 10.1 MG/DL 06/29/2024 11:02 PM [facility] BILIRUBIN TOTAL S/P/B 0.5 0.2 - 1.2 MG/DL 06/29/2024 11:02 PM [facility] TOTAL PROTEIN S/P/B 7.3 6.4 - 8.2 G/DL 06/29/2024 11:02 PM [facility] ALBUMIN S/P/B 3.9 3.4 - 5.0 G/DL 06/29/2024 11:02 PM [facility] AST 21 15 - 37 U/L 06/29/2024 11:02 PM [facility] ALT 25 16 - 60 U/L 06/29/2024 11:02 PM [facility] ALKALINE PHOSPHATASE S/P/B 103 50 - 136 U/L 06/29/2024 11:02 PM [facility] ANION GAP 8.6 5 - 15 MMOL/L 06/29/2024 11:02 PM [facility] BUN CREATININE RATIO 14.0 6 - 26 06/29/2024 11:02 PM [facility] A/G RATIO 1.1 1.0 - 2.0 RATIO 06/29/2024 11:02 PM [facility] GFR ESTIMATE 69(L) >90 ML/MIN/1.7 3 M2 06/29/2024 11:02 PM [facility] Comment: NOTE: eGFR is not calculated for patients <18 years of age. This is an estimated GFR calculation using the new CKD EPI creatinine equation without race and so does not require a correction factor for race. This estimated GFR should not be used for calculating drug doses. 06/29/2024 10:2 4 PM CARDIAC TECHNOLOGIST us Johnnie Cervantes MD LABORATORY Final Resul t [facility] [address] [place] [address], [place] [phone] * (ABNORMAL) CBC W/DIFF AUTOMATED (06/29/2024 10:24 PM CARDIAC TECHNOLOGIST) Only the most recent of4 resultswithin the time period is included. WBC 11.93(H) 4.4 - 11.0 x10'3/uL 06/29/2024 10:38 PM [facility] RBC 4.83 4.50 - 5.90 x10'6/uL 06/29/2024 10:38 PM [facility] HGB 13.8(L) 14.0 - 17.5 G/DL 06/29/2024 10:38 PM [facility] HCT 41.5 41.5 - 50.4 % 06/29/2024 10:38 PM [facility] MCV 85.9 80.0 - 96.0 FL 06/29/2024 10:38 PM [facility] MCH 28.6 26.5 - 31.4 PG 06/29/2024 10:38 PM [facility] MCHC 33.3 31.9 - 34.8 G/DL 06/29/2024 10:38 PM [facility] RDW 13.5 12.3 - 14.3 % 06/29/2024 10:38 PM [facility] PLT 184 151 - 353 x10'3/uL 06/29/2024 10:38 PM [facility] MPV 10.9 9.7 - 11.9 FL 06/29/2024 10:38 PM [facility] RBC MORPHOLOGY NORMAL 06/29/2024 10:38 PM [facility] PLT MORPH. NORMAL 06/29/2024 10:38 PM [facility] WBC MORPHOLOGY NORMAL 06/29/2024 10:38 PM [facility] LYMPHOCYTES % 12.5(L) 15.8 - 45.0 % 06/29/2024 10:38 PM [facility] NEUTROPHILS % 77.9(H) 42.1 - 71.9 % 06/29/2024 10:38 PM [facility] MONOCYTES % 7.1 5.7 - 12.5 % 06/29/2024 10:38 PM [facility] EOSINOPHILS 1.8 0.0 - 5.6 % 06/29/2024 10:38 PM [facility] BASOPHILS 0.4 0.0 - 1.3 % 06/29/2024 10:38 PM [facility] ABS. NEUTROPHILS 9.29(H) 1.40 - 6.00 x10'3/uL 06/29/2024 10:38 PM [facility] IMMATURE GRANS % 0.3 0.0 - 0.5 % 06/29/2024 10:38 PM [facility] ABS. LYMPHOCYTES 1.49 0.80 - 4.70 x10'3/uL 06/29/2024 10:38 PM CARDIAC TECHNOLOGIST [facility] 06/29/2024 10:2 4 PM CARDIAC TECHNOLOGIST us Johnnie Cervantes MD LABORATORY Final Resul t [facility] [address] [place] [address], [place] [phone] * (ABNORMAL) LIPASE (06/29/2024 10:24 PM CARDIAC TECHNOLOGIST) LIPASE 14(L) 16 - 77 UNITS/L 06/29/2024 11:02 PM CARDIAC TECHNOLOGIST [facility] 06/29/2024 10:2 4 PM CARDIAC TECHNOLOGIST us Johnnie Cervantes MD LABORATORY Final Resul t Performing Organization Address City/[facility]/ZIP Co de Phone Number [facility] [address] [place] [address], [place] [phone] * DRUG SCREEN RAPID (06/17/2024 6:44 PM CARDIAC TECHNOLOGIST) Only the most recent of3 resultswithin the time period is included. AMPHETAMINE (U) NONE DETECTED NONE DETECTED 06/17/2024 7:01 PM [facility] BARBITURATES SCREEN (U) NONE DETECTED NONE DETECTED 06/17/2024 7:01 PM [facility] BENZODIAZEPINES SCREEN (U) NONE DETECTED NONE DETECTED 06/17/2024 7:01 PM [facility] BUPRENORPHINE SCREEN (U) NONE DETECTED NONE DETECTED 06/17/2024 7:01 PM [facility] COCAINE METABOLITES (U) NONE DETECTED NONE DETECTED 06/17/2024 7:01 PM [facility] METHAMPHETAMINE (U) NONE DETECTED NONE DETECTED 06/17/2024 7:01 PM [facility] METHADONE (U) NONE DETECTED NONE DETECTED 06/17/2024 7:01 PM CARDIAC TECHNOLOGIST [facility] OPIATE SCREEN (U) NONE DETECTED NONE DETECTED 06/17/2024 7:01 PM [facility] OXYCODONE SCREEN (U) NONE DETECTED NONE DETECTED 06/17/2024 7:01 PM CARDIAC TECHNOLOGIST [facility] PHENCYCLIDINE PCP (U) NONE DETECTED NONE DETECTED 06/17/2024 7:01 PM [facility] CANNABINOIDS SCREEN (U) NONE DETECTED NONE DETECTED 06/17/2024 7:01 PM [facility] TRICYCLIC ANTIDEPRESSANT SCREEN (U) NONE DETECTED NONE DETECTED 06/17/2024 7:01 PM [facility] Comment: NOTE: RESULTS OF THIS [...] URINE SPECIMEN / Unknown 06/17/2024 6:44 PM CARDIAC TECHNOLOGIST Troy Quevedo MD URINE ORDERABLES Final Result [facility] [address] [place] [address], * Urinalysis, Auto, Complete (06/17/2024 6:44 PM CARDIAC TECHNOLOGIST) Only the most recent of2 resultswithin the time period is included. COLOR (U) YELLOW 06/17/2024 6:56 PM CARDIAC TECHNOLOGIST [facility] TRANSPARENCY CLEAR 06/17/2024 6:56 PM [facility] SPECIFIC GRAVITY (U) 1.025 1.000 - 1.030 06/17/2024 6:56 PM [facility] U PH 5.5 5.0 - 9.0 06/17/2024 6:56 PM [facility] LEUKOCYTES (U) NEGATIVE NEGATIVE 06/17/2024 6:56 PM [facility] NITRITES NEGATIVE NEGATIVE 06/17/2024 6:56 PM [facility] PROTEIN RANDOM (U) NEGATIVE NEGATIVE 06/17/2024 6:56 PM [facility] GLUCOSE (U) NEGATIVE NEGATIVE 06/17/2024 6:56 PM [facility] KETONES MG/DL (U) NEGATIVE NEGATIVE 06/17/2024 6:56 PM [facility] BILIRUBIN (U) NEGATIVE NEGATIVE 06/17/2024 6:56 PM [facility] BLOOD (U) NEGATIVE NEGATIVE 06/17/2024 6:56 PM [facility] WBC/HPF 0-5 0 - 5 /HPF 06/17/2024 6:56 PM [facility] RBC/HPF 0-5 0 - 5 /HPF 06/17/2024 6:56 PM [facility] EPI/HPF RARE /HPF 06/17/2024 6:56 PM [facility] BACTERIA (U) RARE /HPF 06/17/2024 6:56 PM [facility] URINE SPECIMEN OBTAINED BY CLEAN CATCH PROCEDURE / Unknown 06/17/2024 6:44 PM CARDIAC TECHNOLOGIST Troy Quevedo MD URINE ORDERABLES Final Result [facility] [address] [place] [address], [place] [phone] * CORONAVIRUS (COVID-19) MOLECULAR (06/17/2024 5:34 PM CARDIAC TECHNOLOGIST) Only the most recent of3 resultswithin the time period is included. Pathologist [facility] CORONAVIRUS SARS COV 2 RNA NEGATIVE NEGATIVE 06/17/2024 5:58 PM CARDIAC TECHNOLOGIST [facility] Comment: NEGATIVE RESULTS DO NOT [...] SARS-COV-2. SPECIMEN TYPE NASAL 06/17/2024 5:37 PM CARDIAC TECHNOLOGIST [facility] NASOPHARYNGEAL SWAB / Unknown 06/17/2024 5:34 PM CARDIAC TECHNOLOGIST us Troy Quevedo MD MICROBIOLOGY - GENERAL ORDERABL ES Final Result Performing Organization Address City/[facility]/ZIP Co de Phone Number [facility] [address] [place] [address], [place] [phone] * (ABNORMAL) TSH W/REFLEX (06/17/2024 5:34 PM CARDIAC TECHNOLOGIST) Pathologist [facility] TSH 0.016(L) 0.358 - 3.74 uIU/ML 06/17/2024 6:28 PM CARDIAC TECHNOLOGIST [facility] Comment: HIGH DOSES OF BIOTIN MAY INTERFERE WITH THIS TEST RESULT. CORRELATION TO CLINICAL HISTORY AND PRESENTATION RECOMMENDED. 06/17/2024 5:34 PM CARDIAC TECHNOLOGIST us Troy Quevedo MD LABORATORY Final Result [facility] [address] [place] [address], [place] [phone] * THYROXINE, FREE (FT4) (06/17/2024 5:34 PM CARDIAC TECHNOLOGIST) FREE T4 0.88 0.76 - 1.46 NG/DL 06/17/2024 6:44 PM CARDIAC TECHNOLOGIST [facility] 06/17/2024 5:34 PM CARDIAC TECHNOLOGIST us Troy Quevedo MD LABORATORY Final Result [facility] [address] [place] [address], [place] [phone] * SALICYLATE (06/17/2024 5:34 PM CARDIAC TECHNOLOGIST) Only the most recent of3 resultswithin the time period is included. SALICYLATES 3.6 2.8 - 20.0 MG/DL 06/17/2024 5:52 PM CARDIAC TECHNOLOGIST [facility] Comment: THERAPEUTIC: 2.8-20.0 Toxic Level: >=30 06/17/2024 5:34 PM CARDIAC TECHNOLOGIST us Troy Quevedo MD LABORATORY Final Result [facility] [address] [place] [address], [place] [phone] * ETHANOL (06/17/2024 5:34 PM CARDIAC TECHNOLOGIST) Only the most recent of3 resultswithin the time period is included. ALCOHOL S/P/B <0.003 <0.003 G/DL 06/17/2024 6:21 PM CARDIAC TECHNOLOGIST [facility] 06/17/2024 5:34 PM CARDIAC TECHNOLOGIST us Troy Quevedo MD LABORATORY Final Result Performing Organization Address [facility] Co de Phone Number [facility] [address] [place] [address], * (ABNORMAL) ACETAMINOPHEN (06/17/2024 5:34 PM CARDIAC TECHNOLOGIST) Only the most recent of3 resultswithin the time period is included. ACETAMINOPHEN S/P/B <0.5(L) 10.0 - 30.0 MCG/ML 06/17/2024 6:44 PM CARDIAC TECHNOLOGIST [facility] Comment: THERAPEUTIC: 10-30 TOXIC: >200 06/17/2024 5:34 PM CARDIAC TECHNOLOGIST Troy Quevedo MD LABORATORY Final Result Performing Organization Address [facility] de Phone Number [facility] [address] [place] [address], * TROPONIN, QUANT (05/20/2024 5:33 AM CARDIAC TECHNOLOGIST) TROPONIN I HIGH SENSITIVITY 11 0 - 75 ng/L 05/20/2024 6:18 AM CARDIAC TECHNOLOGIST [facility] Comment: HIGH DOSES OF BIOTIN, TROPONIN-SPECIFIC AUTOANTIBODIES, AND ANTIBODY THERAPY CONTAINING HAMA MAY INTERFERE WITH THIS TEST RESULT. CORRELATION TO CLINICAL HISTORY AND PRESENTATION RECOMMENDED. 05/20/2024 5:33 AM CARDIAC TECHNOLOGIST Troy Quevedo MD LABORATORY Final Result Performing Organization Address [facility] Co de Phone Number [facility] [address] [place] [address], * MAGNESIUM (05/20/2024 5:33 AM CARDIAC TECHNOLOGIST) MAGNESIUM 1.8 1.8 - 2.4 MG/DL 05/20/2024 6:58 AM CARDIAC TECHNOLOGIST [facility] 05/20/2024 5:33 AM CARDIAC TECHNOLOGIST Troy Quevedo MD LABORATORY Final Result [facility] [address] [place] [address], [place] [phone] * URINALYSIS (05/19/2024 5:30 PM CARDIAC TECHNOLOGIST) COLOR (U) YELLOW 05/19/2024 6:02 PM CARDIAC TECHNOLOGIST [facility] TRANSPARENCY CLEAR 05/19/2024 6:02 PM [facility] SPECIFIC GRAVITY (U) 1.010 1.000 - 1.030 05/19/2024 6:02 PM [facility] U PH 7.0 5.0 - 9.0 05/19/2024 6:02 PM [facility] LEUKOCYTES (U) NEGATIVE NEGATIVE 05/19/2024 6:02 PM [facility] NITRITES NEGATIVE NEGATIVE 05/19/2024 6:02 PM [facility] PROTEIN RANDOM (U) NEGATIVE NEGATIVE 05/19/2024 6:02 PM [facility] GLUCOSE (U) NEGATIVE NEGATIVE 05/19/2024 6:02 PM [facility] KETONES MG/DL (U) NEGATIVE NEGATIVE 05/19/2024 6:02 PM [facility] BILIRUBIN (U) NEGATIVE NEGATIVE 05/19/2024 6:02 PM [facility] BLOOD (U) NEGATIVE NEGATIVE 05/19/2024 6:02 PM [facility] [facility] URINE SPECIMEN OBTAINED BY CLEAN CATCH PROCEDURE / Unknown 05/19/2024 5:30 PM CARDIAC TECHNOLOGIST us Christi Watson MD URINE ORDERABLES Final Result Performing Organization Address [facility] Co de Phone Number [facility] [address] [place] [address], [place] [phone] * THYROID STIM HORMONE, TSH (05/19/2024 5:08 PM CARDIAC TECHNOLOGIST) TSH 1.568 0.358 - 3.74 uIU/ML 05/19/2024 6:05 PM CARDIAC TECHNOLOGIST [facility] Comment: HIGH DOSES OF BIOTIN MAY INTERFERE WITH THIS TEST RESULT. CORRELATION TO CLINICAL HISTORY AND PRESENTATION RECOMMENDED. 05/19/2024 5:08 PM CARDIAC TECHNOLOGIST Christi Watson MD LABORATORY Final Result Performing Organization Address [facility] Co de Phone Number [facility] [address] [place] [address], [place] [phone] * CT ABD+PEL WO CON (03/08/2024 5:32 PM CDT) Anatomical Region Laterality Modality Abdomen Computed Tomogra phy 03/08/2024 6:43 PM CDT Impressions 03/08/2024 6:53 PM CDT IMPRESSION: 1. Enlarged liver with severe fatty infiltration. 2. Small calcification in the urinary bladder was present previously. Referred By: Interpreted By: Bryan Herzog MD, 03/08/2024 6:43 PM Narrative 03/08/2024 6:53 PM CDT [facility] [address] [place] [address] EXAM: CT ABD+PEL WO CON DATE: 03/08/2024 [...] Procedure Note Bryan Herzog MD - 03/08/2024 [facility] [address] [place] [address] EXAM: CT ABD+PEL WO CON DATE: 03/08/2024 [...] * (ABNORMAL) LIPID PANEL (06/05/2022 2:09 PM CARDIAC TECHNOLOGIST) CHOLESTEROL 231(H) <200.0 MG/DL 06/05/2022 3:05 PM [facility] TRIGLYCERIDES 160(H) <150 MG/DL 06/05/2022 3:05 PM [facility] HDL 28(L) >40.0 MG/DL 06/05/2022 3:05 PM [facility] LDL (CALCULATED) 171(H) <100 MG/DL 06/05/2022 3:05 PM [facility] NON HDL CHOLESTEROL 203(H) <130 MG/DL 06/05/2022 3:05 PM [facility] CHOL/HDL RATIO 8.2(H) 0.0 - 4.5 06/05/2022 3:05 PM [facility] VLDL CALCULATION 32 5 - 55 MG/DL 06/05/2022 3:05 PM [facility] LIPID INTERPRETATION 06/05/2022 3:05 PM [facility] Comment: [facility] CONCENSUS REPORT RECOMMENDATIONS: ADULT CHILD LOW RISK: CHOLESTEROL <200 <170 TRIGLYCERIDE <150 --- HDL >=60 --- LDL <100 <110 BORDERLINE: CHOLESTEROL 200-239 170-199 TRIGLYCERIDE 150-199 --- HDL 40-59 --- LDL 100-159 110-129 HIGH RISK: CHOLESTEROL >=240 >=200 TRIGLYCERIDE >=200 --- HDL <40 --- LDL >=160 >=130 06/05/2022 2:09 PM CARDIAC TECHNOLOGIST Estephania Perez EMERGENCY RESPONSE COORDINATOR LABORATORY Final Result Performing Organization Address City/State/[facility] Co de Phone Number [facility] [address] [place] [address], from Last 3 Months or Most Recently Relevant to Health Maintenance Insurance MEDICARE [facility] Privatext MEDICARE [facility] Advance Directives * Full Code (Latest Code Status on File) Date Activated Date Inactivated Comments 01/15/2023 3:52 PM 09/29/2023 8:41 PM * Full Code Date Activated Date Inactivated Comments 01/09/2023 10:51 AM 01/10/2023 8:11 PM * Full Code Date Activated Date Inactivated Comments 11/10/2020 3:15 PM 11/11/2020 9:29 PM Care Teams Rail Assembler Relationship Specialty [place] [address] [place] [address] PCP - General FAMILY PRACTICE 07/09/19 Rodolfo Huerta MD [facility] [address] [place] [address] Kyung Cutter Operator Helper CARDIOVASCULAR DISEASE 02/22/18
--- OUTSIDE RECORDS SUMMARY | 2024-07-14 23:44 | XMS_ITS | Encounter Summary ---
Author Organization [facility] Address [address] [place] [address] Care Team Providers Care Security Intelligence Analyst Name Role Phone Rodolfo Huerta MD Unavailable [phone] Vince Coleman MD Primary Care Provider [phone] Lana Franklin RN Unavailable [phone] Encounter Details Date Type Department Care Team (Late st Contact Info) Description 05/29/2024 [employer] Message Enc [facility] Family & Internal Medicine [facility] [id number] [place] [phone] [facility] Provider Appointment with Social History Tobacco [...] place to sleep or slept in a mcc (including now)? No 01/09/2023 Sex and Gender Information Value Date Recorded Sex Assigned at Male 06/17/2024 5:08 PM REPORT CHECKER Legal Sex Male 7:26 PM CDT Gender [...] Rule Out 06/17/2024 06/17/2024 06/17/2024 5:58 PM REPORT CHECKER Assessment Noted Time PHQ-9 Depression Total Score: 16 021 3:31 PM CDT documented as of this encounter Care Teams Security Intelligence Analyst Relationship Specialty [place] [address] [place] [address] PCP - General FAMILY PRACTICE 07/09/19 Rodolfo Huerta MD [facility]. [address] [address] Kyung Candy Supervisor CARDIOVASCULAR DISEASE 02/22/18 Lana Franklin, RN [address] [place] [address] Mine Expert (Ambulatory) REGISTERED NURSE 05/20/24 06/09/24 documented as of this encounter
--- OUTSIDE RECORDS SUMMARY | 2024-07-14 23:44 | XMS_ITS | Encounter Summary ---
Author Organization [facility] Address [address] [place] [address] Care Team Providers Care Pearl Diver Name Role Phone Rodolfo Huerta MD Unavailable [phone] Vince Coleman MD Primary Care Provider [phone] Encounter Details Date Type Department Care Team (Late st Contact Info) Description 06/10/2024 [employer] Message Enc [facility] Medical Group Family & Internal Medicine [facility] [address] [place] [address] [facility] Appointment request Social History Tobacco Use [...] place to sleep or slept in a fdc (including now)? No 01/09/2023 Sex and Gender Information Value Date Recorded Sex Assigned at Male 06/17/2024 5:08 PM COMMERCIAL PRODUCER Legal Sex Male 7:26 PM CDT Gender [...] Rule Out 06/17/2024 06/17/2024 06/17/2024 5:58 PM COMMERCIAL PRODUCER Assessment Noted Time PHQ-9 Depression Total Score: 16 021 3:31 PM CDT documented as of this encounter Care Teams Pearl Diver Relationship Specialty [place] [address] [place] [address] PCP - General FAMILY PRACTICE 07/09/19 Rodolfo Huerta MD [facility]. [address] [place] [address] Kyung Blanker Operator CARDIOVASCULAR DISEASE 02/22/18 documented as of this encounter
--- OUTSIDE RECORDS SUMMARY | 2024-07-14 23:44 | XMS_ITS | Encounter Summary ---
Author Organization [facility] Address [address] [place] [address] Care Team Providers Care Lumber Planer Name Role Phone Hernandez Moore MD, Svetlana Primary Care Provider + [phone] Rodolfo Huerta MD Unavailable [phone] Franny Patel ANP- Unavailable Unavailab Vince Michael MD Primary Care Provider [phone] Lana Franklin RN Unavailable [phone] Encounter Details Date Type Department Care Team (Late st Contact Info) Description 03/20/2018 [facility] at [address] [id number] Enedina Jeronimo MA Social History Tobacco Use Types Packs/Day Years Used Date Smoking Tobacco: Never Assessed Sex and Gender Information Value Date Recorded Sex Assigned at Male 06/17/2024 5:08 PM REDUCING MACHINE OPERATOR Legal Sex Male 7:26 PM CDT [...] Rule Out 05/18/2024 05/18/2024 05/18/2024 9:05 PM REDUCING MACHINE OPERATOR COVID-19 Rule Out 05/19/2024 05/19/2024 05/19/2024 8:06 PM REDUCING MACHINE OPERATOR COVID-19 Rule Out 06/17/2024 06/17/2024 06/17/2024 5:58 PM REDUCING MACHINE OPERATOR documented as of this encounter Care Teams Lumber Planer Relationship Specialty Start Date End Date Svetlana Ng MD [phone] (Work) PCP - General TUGGER OPERATOR 02/19/18 07/08/19 Franny Patel ANP- PCP - [place] [facility] Attributed Provider 05/28/15 02/12/19 [place] [address] [place] [address] PCP - General FAMILY PRACTICE 07/09/19 Rodolfo Huerta MD [facility]. [address] [address] [place] Military Lawyer CARDIOVASCULAR DISEASE 02/22/18 Lana Franklin, RN [address] [place] [address] Radiology Asst (Ambulatory) REGISTERED NURSE 05/20/24 06/09/24 documented as of this encounter
--- OUTSIDE RECORDS SUMMARY | 2024-07-14 23:44 | XMS_ITS | Encounter Summary ---
Author Organization [facility] Address [address] [place] [address] Care Team Providers Care Partnership Manager Name Role Phone Rodolfo Huerta MD Unavailable [phone] Vince Coleman MD Primary Care Provider [phone] Lana Franklin RN Unavailable [phone] Encounter Details Date Type Department Care Team (Late st Contact Info) Description 06/06/2022 [employer] Message Enc [facility] [address] [address] [place] Provider lab results Social History Tobacco Use [...] Sex Assigned at Male 06/17/2024 5:08 PM SENIOR ELECTRICAL DESIGNER Legal Sex Male 7:26 PM CDT Gender [...] Coronavirus/COVID-19? No / Unsure 06/05/2022 1:53 PM SENIOR ELECTRICAL DESIGNER documented as of this encounter Functional Status [...] Rule Out 05/18/2024 05/18/2024 05/18/2024 9:05 PM SENIOR ELECTRICAL DESIGNER COVID-19 Rule Out 05/19/2024 05/19/2024 05/19/2024 8:06 PM SENIOR ELECTRICAL DESIGNER COVID-19 Rule Out 06/17/2024 06/17/2024 06/17/2024 5:58 PM SENIOR ELECTRICAL DESIGNER Assessment Noted Time PHQ-9 Depression Total Score: 16 021 3:31 PM CDT documented as of this encounter Care Teams Partnership Manager Relationship Specialty [place] [address] [facility] [place] [address] PCP - General FAMILY PRACTICE 07/09/19 Rodolfo Huerta MD [facility]. [address] [address] [facility] Purchase Price Analyst CARDIOVASCULAR DISEASE 02/22/18 Lana Franklin, RN [address] [place], [place] [address] Care Mgr (Ambulatory) REGISTERED NURSE 05/20/24 06/09/24 documented as of this encounter
--- OUTSIDE RECORDS SUMMARY | 2024-07-14 23:44 | XMS_ITS | Encounter Summary ---
Author Organization [facility] Address [address] [place] [address] Care Team Providers Care Sawdust Machine Operator Name Role Phone Rodolfo Huerta MD Unavailable [phone] Vince Coleman MD Primary Care Provider [phone] Lana Franklin RN Unavailable [phone] Encounter Details Date Type Department Care Team (Late st Contact Info) Description 07/28/2021 [employer] Message Enc [facility] Medical Group Family & Internal Medicine [address] [address] [facility] Provider Due for routine follow-up appt Social [...] Sex Assigned at Male 06/17/2024 5:08 PM CLIENT SPECIALIST Legal Sex Male 7:26 PM CDT Gender [...] Rule Out 05/18/2024 05/18/2024 05/18/2024 9:05 PM CLIENT SPECIALIST COVID-19 Rule Out 05/19/2024 05/19/2024 05/19/2024 8:06 PM CLIENT SPECIALIST COVID-19 Rule Out 06/17/2024 06/17/2024 06/17/2024 5:58 PM CLIENT SPECIALIST Assessment Noted Time PHQ-9 Depression Total Score: 16 021 3:31 PM CDT documented as of this encounter Care Teams Sawdust Machine Operator Relationship Specialty [place] [address] [place] [address] PCP - General FAMILY PRACTICE 07/09/19 Rodolfo Huerta MD [facility]. [address] [address] [place] Tool Engine Lathe Set Up Operator CARDIOVASCULAR DISEASE 02/22/18 Lana Franklin, RN [address] [place] [address] Travelers' Aid Worker (Ambulatory) REGISTERED NURSE 05/20/24 06/09/24 documented as of this encounter
--- NOTE | 2024-07-14 23:48 | PC.NURSE ---
Blood cultures obtained via US IV by Dr. Burt.
[2024-07-14 23:50] LABS: Basophils Absolute Auto 0.1 K/mm3 (0.0-0.1); Basophils Percent Auto 0.6 % (0.2-1.2); Eosinophils Absolute Auto 0.3 K/mm3 (0-0.3); Eosinophils Percent Auto 3.3 % (0-4.4); Hematocrit 45.3 % (42.0-52.0); Hemoglobin 14.4 g/dL (14.0-18.0); Immature Granulocyte Absolute 0.03 K/mm3 (0.00-0.031); Immature Granulocyte Percent A 0.3 % (0-0.5); Lymphocytes Absolute Auto 2.44 K/mm3 (0.9-3.2); Lymphocytes Percent Auto 27.1 % (18.3-44.2); Mean Corpuscular HGB Conc 31.8 g/dl (32-36); Mean Corpuscular Volume 88.1 fl (80-100); Mean Platelet Volume 10.6 fl (7.4-10.4); Monocytes Absolute Auto 0.8 K/mm3 (0.1-0.6); Neutrophils Absolute Auto 5.4 K/mm3 (1.3-6.7); Neutrophils Percent Auto 59.7 % (45.5-73.1); Platelet Count Result 207 k/mm3 (150-375); Red Blood Count 5.14 M/mm3 (4.6-6.20); Red Cell Distribution Width 13.7 % (11.5-14.5)
[2024-07-15] VITALS (19 sets, daily range): BP systolic 121–192; BP diastolic 53–122; PULSE 52–80; RESP 12–20; TEMP 36.3–36.4; O2SAT 91–97; BMI 39.5
[2024-07-15] LABS: Alanine Aminotransferase 26 U/L (6-50); Albumin Level 4.6 g/dL (3.5-5.1); Alkaline Phosphatase 106 U/L (38-126); Anion Gap 11 mmol/L (4-12); Aspartate Amino Transferase 27 U/L (17-59); Bilirubin,Total 0.6 mg/dL (0.2-1.3); Blood Urea Nitrogen 22 mg/dL (9-20); Calcium 9.6 mg/dL (8.4-10.2); Carbon Dioxide 31 mmol/L (22-30); Chloride 102 mmol/L (98-107); Estimated CRCL calculation 86 ml/min; Estimated Glomerular Filt Rate > 60; Glucose 88 mg/dL (65-110); Potassium 3.7 mmol/L (3.4-5.0); Sodium 144 mmol/L (137-145)
[2024-07-15 00:01] LABS: Lactic Acid Reflex 1.6 mmol/L (0.7-2.0); Magnesium 1.9 mg/dL (1.6-2.3)
[2024-07-15 00:02] LABS: Partial Thromboplastin Time 27.6 Seconds (22.3-36.8)
[2024-07-15 00:09] LABS: NT Pro B Type Natriuretic Pept 627 pg/mL (19.9-100)
[2024-07-15 00:26] LABS: Influenza A QL RT-PCR Negative (Negative); Influenza B QL RT-PCR Negative (Negative); RSV RNA, RT-PCR Negative (Negative); SARS-CoV-2 RNA PCR Negative (Negative)
--- NOTE | 2024-07-15 08:44 | P.HP_ITS ---
H&P: HPI History of Present Illness Date/Time: 07/15/24 08:44 Chief Complaint: weakness Narrative: Patient is a 69 y/o male who presents to the ED via EMS from home with report of generalised weakness. Patient is a poor historian. Reports he has been feeling somewhat confused and increasingly weak over the last 1 month. He has been having recurrent falls. Patient denies headache, fevers, chest pain, difficulty breathing, abdominal pain, nausea vomiting diarrhea, dysuria or any other physical complaints. in the ED, his vitals were stable. Laboratory workup revealed negative flu RSV and reviewed. CBC CMP unremarkable. Urinalysis negative for infection. Patient admitted for observationAnd physical therapy evaluation Review of Systems Review of Systems: - CONSTITUTIONAL: Denies weight loss, fe selena and chills. - HEENT: Denies changes in vision and he aring - RESPIRATORY: Denies SOB and cough. - CV: Denies palpitations and CP. - GI: Denies abdominal pain, nausea, vom iting and diarrhea. - : Denies dysuria and urinary frequen cy. - MSK: Denies myalgia and joint pain. - SKIN: Denies rash and pruritus. - NEUROLOGICAL: Denies headache and sync ope.Reports generalized weakness - PSYCHIATRIC: Denies recent changes in mood. Denies anxiety and depression. PMFSH Social History Social History Smoking status: Never smoker Meds Home Medications and Allergies Home Medications ?Medication ?Instructions ?Recorded ?Confirmed ?Type acetaminophen 300 mg-codeine 30 mg 1 tablet PO Q12H PRN pain 07/15/24 07/15/24 History tablet amlodipine 10 mg tablet 10 mg PO 07/15/24 History aspirin 81 mg tablet,delayed 81 mg PO DAILY 07/15/24 07/15/24 History release atorvastatin 40 mg tablet 40 mg PO QPM 07/15/24 07/15/24 History bupropion HCl 150 mg 24 hr tablet, 150 mg PO DAILY 07/15/24 07/15/24 History extended release chlorpheniramine maleate 4 mg 4 mg PO Q12H 07/15/24 07/15/24 History tablet (Aller-Chlor) cyclobenzaprine 10 mg tablet 10 mg PO TID 07/15/24 07/15/24 History fenofibrate 54 mg tablet 54 mg PO DAILY 07/15/24 07/15/24 History hydrochlorothiazide 12.5 mg capsule 12.5 mg PO Q12H 07/15/24 07/15/24 History hydrocodone 10 mg-acetaminophen tablet 07/15/24 History 325 mg tablet lisinopril 20 mg tablet 20 mg PO DAILY 07/15/24 07/15/24 History meloxicam 15 mg tablet 15 mg PO DAILY 07/15/24 07/15/24 History pantoprazole 40 mg tablet,delayed 40 mg PO DAILY 07/15/24 07/15/24 History release sertraline 50 mg tablet 50 mg PO Q24H 07/15/24 07/15/24 History tamsulosin 0.4 mg capsule 0.4 mg PO DAILY 07/15/24 07/15/24 History trazodone 100 mg tablet 100 mg PO HS 07/15/24 07/15/24 History zolpidem 5 mg tablet 5 mg PO HS 07/15/24 07/15/24 History Allergies Allergy/AdvReac Type Severity Reaction Status Date / Time tramadol Allergy Mild ITCHING Verified 07/15/24 10:19 Vital Signs Vital Signs - 24 hr 07/14/24 16:16 07/15/24 00:00 07/15/24 01:30 Temperature 97.6 F Pulse Rate 99 73 65 Respiratory Rate 16 20 16 Blood Pressure 166/59 H 189/72 H 177/95 H Pulse Oximetry 100 97 97 07/15/24 03:30 07/15/24 04:29 07/15/24 06:20 Temperature Pulse Rate 52 L 65 63 Respiratory Rate 16 17 12 Blood Pressure 167/92 H 180/82 H 166/65 H Pulse Oximetry 96 94 94 07/15/24 08:31 Temperature 97.6 F Pulse Rate 69 Respiratory Rate 16 Blood Pressure 192/81 H Pulse Oximetry 97 Exam Narrative: APPEARANCE: No apparent distress. Poor historian Head: atraumatic. EYES: EOMI, NOSE: Atraumatic NECK: Trachea midline RESPIRATORY: No increased rate of breathing clear to auscultation CARDIOVASCULAR: RRR, no peripheral edema ABDOMINAL: Non-distended soft nontender MUSCULOSKELETAl: No obvious deformities NEURO: Alert. Moving 4/4 extremities SKIN:: Warm, dry. Normal color PSYCHIATRIC: Normal affect H&P: Results Labs Labs: Short CBC 07/14/24 Range/Units 23:40 WBC 9.0 (4.5-10.0) K/mm3 Hgb 14.4 (14.0-18.0) g/dL Hct 45.3 (42.0-52.0) % Plt Count 207 (150-375) k/mm3 BMP 07/14/24 23:40 Sodium 144 Potassium 3.7 Chloride 102 Carbon Dioxide 31 H BUN 22 H Creatinine 0.93 Glucose 88 Calcium 9.6 Liver Function 07/14/24 Range/Units 23:40 Total Bilirubin 0.6 (0.2-1.3) mg/dL AST 27 (17-59) U/L ALT 26 (6-50) U/L Alkaline Phosphatase 106 (38-126) U/L Albumin 4.6 (3.5-5.1) g/dL Urine 07/14/24 Range/Units 23:13 Urine Color Yellow (Yellow) Urine Appearance Clear (Clear) Urine pH 6.5 (5.0-9.0) Ur Specific [place] 1.018 (1.001-1.035) Urine Protein Negative (Negative) mg/dL Urine Glucose (UA) Negative (Negative) mg/dL Assessment and Plan Assessment and plan (1) Confusion: Code(s): R41.0 - Disorientation, unspecified Status: Acute (2) Generalized weakness: Code(s): R53.1 - Weakness Status: Acute (3) Recurrent falls: Code(s): R29.6 - Repeated falls Status: Acute Plan Patient is a 69 y/o male who presents to the ED via EMS from home with report of generalised weakness. Patient is a poor historian. Reports he has been feeling somewhat confused and increasingly weak over the last 1 month. He has been having recurrent falls. Patient denies headache, fevers, chest pain, difficulty breathing, abdominal pain, nausea vomiting diarrhea, dysuria or any other physical complaints. in the ED, his vitals were stable. Laboratory workup revealed negative flu RSV and reviewed. CBC CMP unremarkable. Urinalysis negative for infection. Patient admitted for observationAnd physical therapy evaluation Recurrent falls Generalized weakness PTOT consult. DVT prophylaxis Lovenox CODE STATUS full code Hospitalist MIPS Advance Care Plan I have confirmed that the patient's Advanced Care Plan is present, code status is documented, or surrogate decision maker is listed in patient medical record.: Yes Medication Reconciliation I have utilized all available resources to obtain, update and review the patients current medications (includes all prescriptions, OTC, herbals, cannabis, and nutritional supplements).: Yes
--- NOTE | 2024-07-15 14:31 | PC.NURSE ---
this RN called pt at this time to update her on what bed her will be moved to Olya
--- NOTE | 2024-07-15 15:07 | PC.NURSE ---
This patient, Vince Campoverde II, was admitted to Medical Room 259-01. Patient/family oriented to hospital policies and general routines including ID bracelet, bed and alarms, visiting hours, pain management, procedures, bathroom and other care routines, personal items, smoking policy, room service/diet, and visiting hours. Information on how to activate the Rapid Response Team has been discussed. Patient/Family are encouraged to report perceived risks to care and to ask questions if they do not understand what they are told or what they should do.
[2024-07-15] MEDS: ATORVASTATIN 40 MG TABLET PO (18:27)
[2024-07-15] MEDS: CYCLOBENZAPRINE HCL 10 MG TABLET PO (18:28)
[2024-07-15] MEDS: ZOLPIDEM TARTRATE (*CRX) 5 MG TABLET PO (20:50)
[2024-07-15] MEDS: hydroCHLOROthiazide 12.5 MG CAPSULE PO (20:50)
[2024-07-15] MEDS: traZODone HCL 50 MG TABLET 100 MG PO (20:50)
[2024-07-15] MEDS: CHLORPHENIRAMINE MALEATE 4 MG TABLET PO (20:51)
[2024-07-16 05:12] VITALS: BP 171/64; PULSE 67; RESP 20; TEMP 36.5; O2SAT 99
[2024-07-16] MEDS: amLODIPine BESYLATE 10 MG TABLET PO (08:35)
[2024-07-16] MEDS: ASPIRIN 81 MG ENTERIC TABLET PO (08:35)
[2024-07-16] MEDS: PANTOPRAZOLE 40 MG TABLET PO (08:36)
[2024-07-16] MEDS: MELOXICAM 7.5 MG TABLET 15 MG PO (08:36)
[2024-07-16] MEDS: buPROPion HCL XL (24 HR) 150 MG TABCR PO (08:36)
[2024-07-16] MEDS: lisinopriL 20 MG TABLET PO (08:36)
[2024-07-16] MEDS: SERTRALINE HCL 50 MG TABLET PO (08:36)
[2024-07-16] MEDS: hydroCHLOROthiazide 12.5 MG CAPSULE PO ×2 (08:36→20:36)
[2024-07-16] MEDS: TAMSULOSIN HCL 0.4 MG CAPSULE PO (08:36)
[2024-07-16] MEDS: CHLORPHENIRAMINE MALEATE 4 MG TABLET PO ×2 (08:36→20:36)
[2024-07-16] MEDS: CYCLOBENZAPRINE HCL 10 MG TABLET PO ×3 (08:36→17:29)
[2024-07-16 08:40] VITALS: O2SAT 98
--- NOTE | 2024-07-16 13:18 | PM.IMPN ---
Progress Note: A&P Assessment and Plan (1) Confusion: Code(s): R41.0 - Disorientation, unspecified Status: Acute Assessment and Plan: CT head neg so far labs negative add tsh and b12 order neurology consult ? early dementia pt appears slow to talk or answer questions (2) Generalized weakness: Code(s): R53.1 - Weakness Status: Acute Assessment and Plan: Patient is a 69 y/o male who presents to the ED via EMS from home with report of generalised weakness. Patient is a poor historian. Reports he has been feeling somewhat confused and increasingly weak over the last 1 month. He has been having recurrent falls. order PT/ OT (3) Recurrent falls: Code(s): R29.6 - Repeated falls Status: Acute Assessment and Plan: PT/ OT ordered home with JACQUIE BURR Subjective Date/time seen: 07/16/24 13:18 Interval history: 69 y/o male who presents to the ED via EMS from home with report of generalised weakness. Patient is a poor historian. Reports he has been feeling somewhat confused and increasingly weak over the last 1 month. He has been having recurrent falls. ct head is nl so far labs are negative order tsh and b12 neurology consult ? early dementia Review of Systems Review of Systems: confusion and weakness confusion appears better today pt is slow but oriented x2 Exam Narrative: APPEARANCE: No apparent distress. slow to converse pt states he is tired NECK: Trachea midline RESPIRATORY: No increased rate of breathing clear to auscultation CARDIOVASCULAR: RRR, no peripheral edema ABDOMINAL: Non-distended soft nontender MUSCULOSKELETAl: No obvious deformities NEURO: Alert. Moving 4/4 extremities SKIN:: Warm, dry. Normal color PSYCHIATRIC: Normal affect Objective Data Vital Signs Vital Signs: Vital Signs - 24 hr 07/15/24 13:32 07/15/24 15:33 07/15/24 20:00 Temperature Pulse Rate 66 Respiratory Rate 20 Blood Pressure 184/66 H Pulse Oximetry Oxygen Delivery Room Air Room Air 07/15/24 21:37 07/16/24 05:12 07/16/24 08:40 Temperature 36.3 C L 36.5 C Pulse Rate 80 67 Respiratory Rate 20 20 Blood Pressure 150/53 H 171/64 H Pulse Oximetry 95 99 98 Oxygen Delivery Room Air Intake/Output Intake/Output: Intake & Output 07/13/24 07/14/24 07/15/2425 23:59 23:59 23:59 23:59 Intake Total 1790 530 Output Total 400 Balance 1790 130 Meds/Results Medications: Active Medications Generic Name Dose Route Start Last Admin Trade Name Freq PRN Reason Stop Dose Admin Acetaminophen/Codeine Phosphate 1 tab 07/15/24 17:01 Acetaminophen/Codeine (*Crx) 300/30 Mg Tablet PO Q12H PRN pain Amlodipine Besylate 10 mg 07/16/24 09:00 07/16/24 08:35 Amlodipine Besylate 10 Mg Tablet PO 10 mg DAILY ELISHA Administration Aspirin 81 mg 07/16/24 09:00 07/16/24 08:35 Aspirin 81 Mg Enteric Tablet PO 81 mg DAILY ELISHA Administration Atorvastatin Calcium 40 mg 07/15/24 18:00 07/15/24 18:27 Atorvastatin 40 Mg Tablet PO 40 mg QPM ELISHA Administration Bupropion HCl 150 mg 07/16/24 09:00 07/16/24 08:36 Bupropion Hcl Xl (24 Hr) 150 Mg Tabcr PO 150 mg DAILY ELISHA Administration Chlorpheniramine Maleate 4 mg 07/15/24 21:00 07/16/24 08:36 Chlorpheniramine Maleate 4 Mg Tablet PO 4 mg Q12HR ELISHA Administration Cyclobenzaprine HCl 10 mg 07/15/24 18:00 07/16/24 12:08 Cyclobenzaprine Hcl 10 Mg Tablet PO 10 mg TID ELISHA Administration Hydrochlorothiazide 12.5 mg 07/15/24 21:00 07/16/24 08:36 Hydrochlorothiazide 12.5 Mg Capsule PO 12.5 mg Q12HR ELISHA Administration Lisinopril 20 mg 07/16/24 09:00 07/16/24 08:36 Lisinopril 20 Mg Tablet PO 20 mg DAILY ELISHA Administration Meloxicam 15 mg 07/16/24 09:00 07/16/24 08:36 Meloxicam 7.5 Mg Tablet PO 15 mg DAILY ELISHA Administration Pantoprazole Sodium 40 mg 07/16/24 09:00 07/16/24 08:36 Pantoprazole 40 Mg Tablet PO 40 mg DAILY ELISHA Administration Sertraline HCl 50 mg 07/16/24 09:00 07/16/24 08:36 Sertraline Hcl 50 Mg Tablet PO 50 mg DAILY ELISHA Administration Tamsulosin HCl 0.4 mg 07/16/24 09:00 07/16/24 08:36 Tamsulosin Hcl 0.4 Mg Capsule PO 0.4 mg DAILY ELISHA Administration Trazodone HCl 100 mg 07/15/24 21:00 07/15/24 20:50 Trazodone Hcl 50 Mg Tablet PO 100 mg HS ELISHA Administration Zolpidem Tartrate 5 mg 07/15/24 21:00 07/15/24 20:50 Zolpidem Tartrate (*Crx) 5 Mg Tablet PO 5 mg HS ELISHA Administration Radiology Results: ITS Impressions Head CT 07/14/24 18:03 IMPRESSION: No acute intracranial process. Chest X-Ray 07/14/24 18:26 IMPRESSION: No acute cardiopulmonary process.
[2024-07-16] MEDS: ENOXAPARIN 40 MG/0.4 ML SYRINGE SUB-Q (13:53)
[2024-07-16 14:00] VITALS: BP 115/45; PULSE 110; RESP 19; TEMP 36.7; O2SAT 94
[2024-07-16] MEDS: ATORVASTATIN 40 MG TABLET PO (17:29)
[2024-07-16] MEDS: ZOLPIDEM TARTRATE (*CRX) 5 MG TABLET PO (20:36)
[2024-07-16] MEDS: traZODone HCL 50 MG TABLET 100 MG PO (20:36)
[2024-07-16 21:08] VITALS: BP 133/54; PULSE 100; RESP 18; TEMP 36.4; O2SAT 95
[2024-07-17 05:44] VITALS: BP 137/61; PULSE 60; RESP 18; TEMP 36.1; O2SAT 96
[2024-07-17 07:26] LABS: Basophils Absolute Auto 0.1 K/mm3 (0.0-0.1); Basophils Percent Auto 0.7 % (0.2-1.2); Eosinophils Absolute Auto 0.3 K/mm3 (0-0.3); Eosinophils Percent Auto 3.6 % (0-4.4); Hematocrit 40.6 % (42.0-52.0); Hemoglobin 12.8 g/dL (14.0-18.0); Immature Granulocyte Absolute 0.04 K/mm3 (0.00-0.031); Immature Granulocyte Percent A 0.4 % (0-0.5); Lymphocytes Absolute Auto 3.12 K/mm3 (0.9-3.2); Lymphocytes Percent Auto 33.9 % (18.3-44.2); Mean Corpuscular HGB Conc 31.5 g/dl (32-36); Mean Corpuscular Hemoglobin 28.4 pg (26-34); Mean Platelet Volume 11.2 fl (7.4-10.4); Monocytes Absolute Auto 1.1 K/mm3 (0.1-0.6); Monocytes Percent Auto 11.9 % (2.6-8.5); Neutrophils Absolute Auto 4.6 K/mm3 (1.3-6.7); Neutrophils Percent Auto 49.5 % (45.5-73.1); Platelet Count Result 174 k/mm3 (150-375); Red Blood Count 4.51 M/mm3 (4.6-6.20); White Blood Count 9.2 K/mm3 (4.5-10.0)
[2024-07-17 08:41] VITALS: BP 137/67; PULSE 57; O2SAT 97
[2024-07-17] MEDS: hydroCHLOROthiazide 12.5 MG CAPSULE PO ×2 (08:45→20:37)
[2024-07-17] MEDS: buPROPion HCL XL (24 HR) 150 MG TABCR PO (08:45)
[2024-07-17] MEDS: TAMSULOSIN HCL 0.4 MG CAPSULE PO (08:46)
[2024-07-17] MEDS: CYCLOBENZAPRINE HCL 10 MG TABLET PO ×3 (08:46→17:13)
[2024-07-17] MEDS: amLODIPine BESYLATE 10 MG TABLET PO (08:46)
[2024-07-17] MEDS: PANTOPRAZOLE 40 MG TABLET PO (08:46)
[2024-07-17] MEDS: CHLORPHENIRAMINE MALEATE 4 MG TABLET PO ×2 (08:46→20:37)
[2024-07-17] MEDS: MELOXICAM 7.5 MG TABLET 15 MG PO (08:46)
[2024-07-17] MEDS: SERTRALINE HCL 50 MG TABLET PO (08:46)
[2024-07-17] MEDS: lisinopriL 20 MG TABLET PO (08:47)
[2024-07-17] MEDS: ENOXAPARIN 40 MG/0.4 ML SYRINGE SUB-Q (08:47)
[2024-07-17] MEDS: ASPIRIN 81 MG ENTERIC TABLET PO (08:47)
[2024-07-17 08:53] LABS: Alanine Aminotransferase 24 U/L (6-50); Albumin Level 3.8 g/dL (3.5-5.1); Alkaline Phosphatase 88 U/L (38-126); Anion Gap 9 mmol/L (4-12); Aspartate Amino Transferase 33 U/L (17-59); Bilirubin,Total 0.6 mg/dL (0.2-1.3); Blood Urea Nitrogen 26 mg/dL (9-20); Calcium 9.3 mg/dL (8.4-10.2); Carbon Dioxide 29 mmol/L (22-30); Chloride 103 mmol/L (98-107); Estimated CRCL calculation 66 ml/min; Estimated Glomerular Filt Rate 58; Glucose 93 mg/dL (65-110); Sodium 141 mmol/L (137-145)
[2024-07-17 09:01] LABS: NT Pro B Type Natriuretic Pept 163 pg/mL (19.9-100)
--- NOTE | 2024-07-17 13:34 | P.PNIM_ITS ---
Progress Note: A&P Assessment and Plan (1) Recurrent falls: Code(s): R29.6 - Repeated falls Status: Acute Assessment and Plan: - PT/ OT ordered - evaluated for home with HH vs Acute Rehab - Possible [place] SN[facility] placement? (2) Confusion: Code(s): R41.0 - Disorientation, unspecified Status: Acute Assessment and Plan: - CT head neg - labs negative - UA normal - BNP 627 --> 163 - order neurology consult - not available at this time, - early dementia pt appears slow to talk or answer questions (3) Generalized weakness: Code(s): R53.1 - Weakness Status: Acute Assessment and Plan: - Reports he has been feeling somewhat confused and increasingly weak over the last 1 month. - He has been having recurrent falls. - CT head normal - ordered PT/ OT eval Plan Will monitor patient, PT/OT to eval and discharge planning to work with patient for placement vs outpatient treatment. Time Spent With Patient Time with patient: Greater than 35 minutes (40 minutes) Subjective Date/time seen: 07/17/24 13:34 Interval history: This is a 69 y/o male who presented to the ED via EMS from home with report of generalized weakness. Patient is a poor historian. Reports he has been feeling somewhat confused and increasingly weak over the last 1 month. Patient reports that he has been having recurrent falls at home. Reports today he just feels fatigued. patient denies chest pain, shortness of breath, fever, chills, or dizziness. Neurology was consulted, however unable to see patient until Sunday. patient is to see PT/OT today. patient denies any current distress, feels as if he could just sleep . Exam Const: General: cooperative, comfortable, alert and awake Orientation/consciousness: oriented to person, oriented to place and oriented to time Eyes: General: appearance normal, both eyes and all related structures Neck: Neck: normal visual inspection, full ROM and no lymphadenopathy Chest: Chest palpation & inspection: normal inspection of the chest Resp: Effort & Inspection: normal respiratory effort Auscultation: clear to auscultation bilaterally Cardio: Jugular venous distension: no JVD Palpation: normal PMI Rate: regular rate Rhythm: regular rhythm Heart sounds: S1 normal heart sound present and S2 normal heart sound present GI: Inspection: normal to inspection GI Palp: Yes Soft to palpation Auscultation: normal bowel sounds Skin: General skin exam: normal color and no rashes or lesions noted Neuro: General: oriented to person, oriented to place, oriented to time and moves all extremities Cranial nerves: Yes CN's II-XII intact bilaterally Speech: normal speech Gait exam (Neuro): Unable to assess gait Psych: Appearance: grossly normal Speech and movement: Clear speech present and Slowed speech present (Psych) Affect: normal affect Attitude: cooperative Objective Data Vital Signs Vital Signs: Vital Signs - 24 hr 07/16/24 13:36 07/16/24 14:00 07/16/24 20:00 Temperature 98.1 F Pulse Rate 110 H Respiratory Rate 19 Blood Pressure 115/45 L Pulse Oximetry 94 Oxygen Delivery Room Air Room Air 07/16/24 21:08 07/17/24 05:44 07/17/24 08:41 Temperature 97.6 F 97 F L Pulse Rate 100 60 57 L Respiratory Rate 18 18 Blood Pressure 133/54 L 137/61 137/67 Pulse Oximetry 95 96 97 Oxygen Delivery 07/17/24 08:45 Temperature Pulse Rate Respiratory Rate Blood Pressure Pulse Oximetry Oxygen Delivery Room Air Intake/Output Intake/Output: Intake & Output 07/14/24 07/15/24 07/16/24 07/17/24 23:59 23:59 23:59 23:59 Intake Total 1790 1920 1100 Output Total 1300 800 Balance 1790 620 300 Meds/Results Medications: Active Medications Generic Name Dose Route Start Last Admin Trade Name Freq PRN Reason Stop Dose Admin Acetaminophen/Codeine Phosphate 1 tab 07/15/24 17:01 Acetaminophen/Codeine (*Crx) 300/30 Mg Tablet PO Q12H PRN pain Amlodipine Besylate 10 mg 07/16/24 09:00 07/17/24 08:46 Amlodipine Besylate 10 Mg Tablet PO 10 mg DAILY ELISHA Administration Aspirin 81 mg 07/16/24 09:00 07/17/24 08:47 Aspirin 81 Mg Enteric Tablet PO 81 mg DAILY ELISHA Administration Atorvastatin Calcium 40 mg 07/15/24 18:00 07/16/24 17:29 Atorvastatin 40 Mg Tablet PO 40 mg QPM ELISHA Administration Bupropion HCl 150 mg 07/16/24 09:00 07/17/24 08:45 Bupropion Hcl Xl (24 Hr) 150 Mg Tabcr PO 150 mg DAILY ELISHA Administration Chlorpheniramine Maleate 4 mg 07/15/24 21:00 07/17/24 08:46 Chlorpheniramine Maleate 4 Mg Tablet PO 4 mg Q12HR ELISHA Administration Cyclobenzaprine HCl 10 mg 07/15/24 18:00 07/17/24 12:45 Cyclobenzaprine Hcl 10 Mg Tablet PO 10 mg TID ELISHA Administration Enoxaparin Sodium 40 mg 07/16/24 13:35 07/17/24 08:47 Enoxaparin 40 Mg/0.4 Ml Syringe SUB-Q 40 mg DAILY ELISHA Administration Hydrochlorothiazide 12.5 mg 07/15/24 21:00 07/17/24 08:45 Hydrochlorothiazide 12.5 Mg Capsule PO 12.5 mg Q12HR ELISHA Administration Lisinopril 20 mg 07/16/24 09:00 07/17/24 08:47 Lisinopril 20 Mg Tablet PO 20 mg DAILY ELISHA Administration Meloxicam 15 mg 07/16/24 09:00 07/17/24 08:46 Meloxicam 7.5 Mg Tablet PO 15 mg DAILY ELISHA Administration Pantoprazole Sodium 40 mg 07/16/24 09:00 07/17/24 08:46 Pantoprazole 40 Mg Tablet PO 40 mg DAILY ELISHA Administration Sertraline HCl 50 mg 07/16/24 09:00 07/17/24 08:46 Sertraline Hcl 50 Mg Tablet PO 50 mg DAILY ELISHA Administration Tamsulosin HCl 0.4 mg 07/16/24 09:00 07/17/24 08:46 Tamsulosin Hcl 0.4 Mg Capsule PO 0.4 mg DAILY ELISHA Administration Trazodone HCl 100 mg 07/15/24 21:00 07/16/24 20:36 Trazodone Hcl 50 Mg Tablet PO 100 mg HS ELISHA Administration Zolpidem Tartrate 5 mg 07/15/24 21:00 07/16/24 20:36 Zolpidem Tartrate (*Crx) 5 Mg Tablet PO 5 mg HS ELISHA Administration Radiology Results: ITS Impressions Head CT 07/14/24 18:03 IMPRESSION: No acute intracranial process. Chest X-Ray 07/14/24 18:26 IMPRESSION: No acute cardiopulmonary process. Labs Labs: Laboratory Results - last 24 hr 07/17/24 07/17/24 05:26 05:30 WBC 9.2 RBC 4.51 L Hgb 12.8 L Hct 40.6 L MCV 90.0 MCH 28.4 MCHC 31.5 L RDW 14.0 Plt Count 174 MPV 11.2 H Immature Gran % (Auto) 0.4 Neut % (Auto) 49.5 Lymph % (Auto) 33.9 [place] % (Auto) 11.9 H Eos % (Auto) 3.6 Baso % (Auto) 0.7 Lymph # (Auto) 3.12 [place] # (Auto) 1.1 H Eos # (Auto) 0.3 Baso # (Auto) 0.1 Abs Immat Gran (auto) 0.04 H Absolute Neuts (auto) 4.6 Absolute Nucleated RBC 0.000 Nucleated RBC % 0.0 Sodium 141 Potassium 4.0 Chloride 103 Carbon Dioxide 29 Anion Gap 9 BUN 26 H Creatinine 1.23 Estim Creat Clear Calc 66 Estimated GFR 58 L Glucose 93 Calcium 9.3 Total Bilirubin 0.6 AST 33 ALT 24 Alkaline Phosphatase 88 NT-Pro-B Natriuret Pep 163 H Total Protein 7.0 Albumin 3.8 Vitamin B12 507.0 TSH 2.250 Hospitalist MIPS Advance Care Plan I have confirmed that the patient's Advanced Care Plan is present, code status is documented, or surrogate decision maker is listed in patient medical record.: Yes Medication Reconciliation I have utilized all available resources to obtain, update and review the patients current medications (includes all prescriptions, OTC, herbals, cannabis , and nutritional supplements).: Yes
[2024-07-17] MEDS: ATORVASTATIN 40 MG TABLET PO (17:13)
[2024-07-17 20:29] VITALS: BP 147/56; PULSE 105; RESP 18; TEMP 36.6; O2SAT 96
[2024-07-17] MEDS: traZODone HCL 50 MG TABLET 100 MG PO (20:36)
[2024-07-17] MEDS: ZOLPIDEM TARTRATE (*CRX) 5 MG TABLET PO (20:37)
[2024-07-18] VITALS (9 sets, daily range): BP systolic 136–155; BP diastolic 42–53; PULSE 47–63; RESP 18–20; TEMP 36.3–36.9; O2SAT 94–96
[2024-07-18 08:32] LABS: Basophils Absolute Auto 0.1 K/mm3 (0.0-0.1); Basophils Percent Auto 0.5 % (0.2-1.2); Eosinophils Absolute Auto 0.3 K/mm3 (0-0.3); Eosinophils Percent Auto 3.2 % (0-4.4); Hematocrit 42.2 % (42.0-52.0); Hemoglobin 13.3 g/dL (14.0-18.0); Immature Granulocyte Absolute 0.04 K/mm3 (0.00-0.031); Immature Granulocyte Percent A 0.4 % (0-0.5); Lymphocytes Absolute Auto 2.26 K/mm3 (0.9-3.2); Lymphocytes Percent Auto 22.5 % (18.3-44.2); Mean Corpuscular HGB Conc 31.5 g/dl (32-36); Mean Corpuscular Hemoglobin 27.7 pg (26-34); Mean Corpuscular Volume 87.9 fl (80-100); Mean Platelet Volume 10.7 fl (7.4-10.4); Monocytes Absolute Auto 0.9 K/mm3 (0.1-0.6); Monocytes Percent Auto 9.4 % (2.6-8.5); Neutrophils Absolute Auto 6.4 K/mm3 (1.3-6.7); Platelet Count Result 203 k/mm3 (150-375); Red Cell Distribution Width 13.6 % (11.5-14.5)
--- NOTE | 2024-07-18 08:39 | P.PNIM_ITS ---
Progress Note: A&P Assessment and Plan (1) Recurrent falls: Code(s): R29.6 - Repeated falls Status: Acute Assessment and Plan: - PT/ OT ordered - evaluated for home with HH vs Acute Rehab - right knee xray d/t complaint of pain - consulting Orthopedist - [facility]? (2) Confusion: Code(s): R41.0 - Disorientation, unspecified Status: Acute Assessment and Plan: - CT head neg - labs negative - UA normal - BNP 627 --> 163 - order neurology consult - not available at this time, - not wearing CPAP? - contributing factor possibly - early dementia pt appears slow to talk or answer questions (3) Generalized weakness: Code(s): R53.1 - Weakness Status: Acute Assessment and Plan: - Reports he has been feeling somewhat confused and increasingly weak over the last 1 month. - He has been having recurrent falls. - CT head normal - ordered PT/ OT eval (4) COOPER on CPAP: Code(s): G47.33 - Obstructive sleep apnea (adult) (pediatric) Status: Acute Assessment and Plan: ##Chronic --> has not been wearing, trouble setting it up --> restart CPAP per home settings (5) Right knee pain: Code(s): M25.561 - Pain in right knee Status: Acute Assessment and Plan: ## - old scabbed laceration to right knee, --> reports from fall last week right knee xray noted Impression: 1: Mild osteoarthritis of the right knee. 2: Moderate joint effusion. --> will consult Ortho Plan Will monitor patient, PT/OT to eval and discharge planning to work with patient for placement vs outpatient treatment. Time Spent With Patient Time with patient: Greater than 35 minutes (40 minutes) Subjective Date/time seen: 07/18/24 08:39 Interval history: This is a 69 y/o male who presented to the ED via EMS from home with report of generalized weakness. Patient is a poor historian. Reports he has been feeling somewhat confused and increasingly weak over the last 1 month. Patient reports that he has been having recurrent falls at home. Reports today he just feels fatigued. patient denies chest pain, shortness of breath, fever, chills. Neurology was consulted, however unable to see patient until Sunday. patient is to see PT/OT today. patient denies any current distress, he states his right knee is hurting more today. He is feeling dizzy in the AM. He however is not wearing his CPAP at night currently. Review of Systems 2 Review of Systems: All systems reviewed & are unremarkable except as noted in HPI and below Constitutional: Constitutional: Reports no additional constitutional complaints Eyes: Eyes: Reports as per HPI and Reports no additional eye complaints ENT: Reports system reviewed and no additional complaints, except as documented Cardiovascular: Cardiovascular: Reports as per HPI and Reports no additional cardiovascular complaints Respiratory: Respiratory: Reports as per HPI and Reports no additional respiratory complaints Musculoskeletal: Musculoskeletal: Reports as per HPI and Reports arthralgias Integumentary/Breasts: Skin/Breast: Reports system reviewed and no additional complaints, except as docu Neurologic: Reports system reviewed and no additional complaints, except as documented Psychiatric: Psychiatric: Reports no additional psychiatric complaints Exam Const: General: cooperative, comfortable, alert and awake Orientation/consciousness: oriented to person, oriented to place and oriented to time Eyes: General: appearance normal, both eyes and all related structures Neck: Neck: normal visual inspection, full ROM and no lymphadenopathy Chest: Chest palpation & inspection: normal inspection of the chest Resp: Effort & Inspection: normal respiratory effort Auscultation: clear to auscultation bilaterally Cardio: Jugular venous distension: no JVD Palpation: normal PMI Rate: regular rate Rhythm: regular rhythm Heart sounds: S1 normal heart sound present and S2 normal heart sound present GI: Inspection: normal to inspection Auscultation: normal bowel sounds Skin: General skin exam: normal color and erythema Wounds: wounds noted laceration right anterior knee , tear left anterior knee Neuro: General: oriented to person, oriented to place, oriented to time, moves all extremities and Unable to assess gait Cranial nerves: Yes CN's II-XII intact bilaterally Speech: normal speech Gait exam (Neuro): Unable to assess gait Extrem: General: full ROM Right upper extremity: normal to inspection Left upper extremity: normal to inspection Right lower extremity: edema Details: 1+ Left lower extremity: edema Details: 1+ Psych: Appearance: grossly normal Speech and movement: Clear speech present and Slowed speech present (Psych) Affect: normal affect Attitude: cooperative Objective Data Vital Signs Vital Signs: Vital Signs - 24 hr 07/17/24 08:41 07/17/24 08:45 07/17/24 20:00 Temperature Pulse Rate 57 L Respiratory Rate Blood Pressure 137/67 Pulse Oximetry 97 Oxygen Delivery Room Air Room Air 07/17/24 20:29 07/18/24 04:48 07/18/24 07:45 Temperature 97.9 F 98.2 F 98.1 F Pulse Rate 105 H 63 62 Respiratory Rate 18 20 18 Blood Pressure 147/56 H 154/49 H 155/48 H Pulse Oximetry 96 96 96 Oxygen Delivery Intake/Output Intake/Output: Intake & Output 07/15/24 07/16/24 07/17/24 07/18/24 23:59 23:59 23:59 23:59 Intake Total 1790 1920 1580 420 Output Total 1300 1700 1600 Balance 1790 618 -120 -3613 Meds/Results Medications: Active Medications Generic Name Dose Route Start Last Admin Trade Name Freq PRN Reason Stop Dose Admin Acetaminophen/Codeine Phosphate 1 tab 07/15/24 17:01 Acetaminophen/Codeine (*Crx) 300/30 Mg Tablet PO Q12H PRN pain Amlodipine Besylate 10 mg 07/16/24 09:00 07/17/24 08:46 Amlodipine Besylate 10 Mg Tablet PO 10 mg DAILY ELISHA Administration Aspirin 81 mg 07/16/24 09:00 07/17/24 08:47 Aspirin 81 Mg Enteric Tablet PO 81 mg DAILY ELISHA Administration Atorvastatin Calcium 40 mg 07/15/24 18:00 07/17/24 17:13 Atorvastatin 40 Mg Tablet PO 40 mg QPM ELISHA Administration Bupropion HCl 150 mg 07/16/24 09:00 07/17/24 08:45 Bupropion Hcl Xl (24 Hr) 150 Mg Tabcr PO 150 mg DAILY ELISHA Administration Chlorpheniramine Maleate 4 mg 07/15/24 21:00 07/17/24 20:37 Chlorpheniramine Maleate 4 Mg Tablet PO 4 mg Q12HR ELISHA Administration Cyclobenzaprine HCl 10 mg 07/15/24 18:00 07/17/24 17:13 Cyclobenzaprine Hcl 10 Mg Tablet PO 10 mg TID ELISHA Administration Enoxaparin Sodium 40 mg 07/16/24 13:35 07/17/24 08:47 Enoxaparin 40 Mg/0.4 Ml Syringe SUB-Q 40 mg DAILY ELISHA Administration Hydrochlorothiazide 12.5 mg 07/15/24 21:00 07/17/24 20:37 Hydrochlorothiazide 12.5 Mg Capsule PO 12.5 mg Q12HR ELISHA Administration Lisinopril 20 mg 07/16/24 09:00 07/17/24 08:47 Lisinopril 20 Mg Tablet PO 20 mg DAILY ELISHA Administration Meloxicam 15 mg 07/16/24 09:00 07/17/24 08:46 Meloxicam 7.5 Mg Tablet PO 15 mg DAILY ELISHA Administration Pantoprazole Sodium 40 mg 07/16/24 09:00 07/17/24 08:46 Pantoprazole 40 Mg Tablet PO 40 mg DAILY ELISHA Administration Sertraline HCl 50 mg 07/16/24 09:00 07/17/24 08:46 Sertraline Hcl 50 Mg Tablet PO 50 mg DAILY ELISHA Administration Tamsulosin HCl 0.4 mg 07/16/24 09:00 07/17/24 08:46 Tamsulosin Hcl 0.4 Mg Capsule PO 0.4 mg DAILY ELISHA Administration Trazodone HCl 100 mg 07/15/24 21:00 07/17/24 20:36 Trazodone Hcl 50 Mg Tablet PO 100 mg HS ELISHA Administration Zolpidem Tartrate 5 mg 07/15/24 21:00 07/17/24 20:37 Zolpidem Tartrate (*Crx) 5 Mg Tablet PO 5 mg HS ELISHA Administration Radiology Results: ITS Impressions Head CT 07/14/24 18:03 IMPRESSION: No acute intracranial process. Chest X-Ray 07/14/24 18:26 IMPRESSION: No acute cardiopulmonary process. Labs Labs: Laboratory Results - last 24 hr 07/17/24 07/18/24 05:26 08:01 WBC 10.0 RBC 4.80 Hgb 13.3 L Hct 42.2 MCV 87.9 MCH 27.7 MCHC 31.5 L RDW 13.6 Plt Count 203 MPV 10.7 H Immature Gran % (Auto) 0.4 Neut % (Auto) 64.0 Lymph % (Auto) 22.5 [place] % (Auto) 9.4 H Eos % (Auto) 3.2 Baso % (Auto) 0.5 Lymph # (Auto) 2.26 [place] # (Auto) 0.9 H Eos # (Auto) 0.3 Baso # (Auto) 0.1 Abs Immat Gran (auto) 0.04 H Absolute Neuts (auto) 6.4 Absolute Nucleated RBC 0.000 Nucleated RBC % 0.0 Sodium 141 Potassium 4.0 Chloride 103 Carbon Dioxide 29 Anion Gap 9 BUN 26 H Creatinine 1.23 Estim Creat Clear Calc 66 Estimated GFR 58 L Glucose 93 Calcium 9.3 Total Bilirubin 0.6 AST 33 ALT 24 Alkaline Phosphatase 88 NT-Pro-B Natriuret Pep 163 H Total Protein 7.0 Albumin 3.8 Quality VTE Prophylaxis VTE prophylaxis: mechanical ordered Hospitalist MIPS Advance Care Plan I have confirmed that the patient's Advanced Care Plan is present, code status is documented, or surrogate decision maker is listed in patient medical record.: Yes Medication Reconciliation I have utilized all available resources to obtain, update and review the patients current medications (includes all prescriptions, OTC, herbals, cannabis, and nutritional supplements).: Yes
[2024-07-18 08:46] LABS: Alanine Aminotransferase 23 U/L (6-50); Albumin Level 4.2 g/dL (3.5-5.1); Alkaline Phosphatase 96 U/L (38-126); Anion Gap 11 mmol/L (4-12); Aspartate Amino Transferase 20 U/L (17-59); Bilirubin,Total 0.5 mg/dL (0.2-1.3); Blood Urea Nitrogen 21 mg/dL (9-20); Calcium 9.1 mg/dL (8.4-10.2); Carbon Dioxide 30 mmol/L (22-30); Chloride 100 mmol/L (98-107); Estimated CRCL calculation 87 ml/min; Estimated Glomerular Filt Rate > 60; Glucose 93 mg/dL (65-110); Magnesium 1.8 mg/dL (1.6-2.3); Potassium 4.1 mmol/L (3.4-5.0); Sodium 141 mmol/L (137-145)
[2024-07-18 08:49] LABS: NT Pro B Type Natriuretic Pept 184 pg/mL (19.9-100)
[2024-07-18] MEDS: buPROPion HCL XL (24 HR) 150 MG TABCR PO (09:07)
[2024-07-18] MEDS: CYCLOBENZAPRINE HCL 10 MG TABLET PO ×2 (09:07→13:17)
[2024-07-18] MEDS: hydroCHLOROthiazide 12.5 MG CAPSULE PO ×2 (09:07→20:24)
[2024-07-18] MEDS: SERTRALINE HCL 50 MG TABLET PO (09:07)
[2024-07-18] MEDS: CHLORPHENIRAMINE MALEATE 4 MG TABLET PO ×2 (09:08→20:24)
[2024-07-18] MEDS: ASPIRIN 81 MG ENTERIC TABLET PO (09:08)
[2024-07-18] MEDS: amLODIPine BESYLATE 10 MG TABLET PO (09:08)
[2024-07-18] MEDS: PANTOPRAZOLE 40 MG TABLET PO (09:08)
[2024-07-18] MEDS: MELOXICAM 7.5 MG TABLET 15 MG PO (09:08)
[2024-07-18] MEDS: TAMSULOSIN HCL 0.4 MG CAPSULE PO (09:11)
[2024-07-18] MEDS: lisinopriL 20 MG TABLET PO (09:11)
[2024-07-18] MEDS: ENOXAPARIN 40 MG/0.4 ML SYRINGE SUB-Q (09:19)
--- NOTE | 2024-07-18 15:33 | PC.NURSE ---
On 07/18/24, the student, Jennifer Mendes, provided care and completed [facility] documentation on this patient. I have reviewed the student's documentation and agree with the findings.
[2024-07-18] MEDS: ATORVASTATIN 40 MG TABLET PO (17:14)
[2024-07-18] MEDS: ZOLPIDEM TARTRATE (*CRX) 5 MG TABLET PO (20:24)
[2024-07-18] MEDS: traZODone HCL 50 MG TABLET 100 MG PO (20:24)
[2024-07-19 06:00] VITALS: BP 165/70; PULSE 60; RESP 18; TEMP 36.4; O2SAT 96
--- NOTE | 2024-07-19 06:50 | P.PNIM_ITS ---
Progress Note: A&P Assessment and Plan (1) Recurrent falls: Code(s): R29.6 - Repeated falls Status: Acute Assessment and Plan: - PT/ OT ordered - evaluated for home with HH vs Acute Rehab - right knee xray d/t complaint of pain - consulting Orthopedist - [facility]? (2) Confusion: Code(s): R41.0 - Disorientation, unspecified Status: Acute Assessment and Plan: - CT head neg - labs negative - UA normal - BNP 627 --> 163 - order neurology consult - not available at this time, - not wearing CPAP? - contributing factor possibly - early dementia pt appears slow to talk or answer questions (3) Generalized weakness: Code(s): R53.1 - Weakness Status: Acute Assessment and Plan: - Reports he has been feeling somewhat confused and increasingly weak over the last 1 month. - He has been having recurrent falls. - CT head normal - ordered PT/ OT eval (4) COOPER on CPAP: Code(s): G47.33 - Obstructive sleep apnea (adult) (pediatric) Status: Acute Assessment and Plan: ##Chronic --> has not been wearing, trouble setting it up --> restart CPAP per home settings (5) Right knee pain: Code(s): M25.561 - Pain in right knee Status: Acute Assessment and Plan: ## - old scabbed laceration to right knee, --> reports from fall last week right knee xray noted Impression: 1: Mild osteoarthritis of the right knee. 2: Moderate joint effusion. --> will consult Ortho Plan Will monitor patient, PT/OT to eval and discharge planning to work with patient for placement vs outpatient treatment. Subjective Date/time seen: 07/19/24 06:50 Interval history: This is a 69 y/o male who presented to the ED via EMS from home with report of generalized weakness. Patient is a poor historian. Reports he has been feeling somewhat confused and increasingly weak over the last 1 month. Patient reports that he has been having recurrent falls at home. Reports today he just feels fatigued. patient denies chest pain, shortness of breath, fever, chills. Neurology was consulted, however unable to see patient until Sunday. patient is to see PT/OT today. patient denies any current distress, he states his right knee is hurting more today. He is feeling dizzy in the AM. He however is not wearing his CPAP at night currently. Review of Systems Review of Systems: confusion and weakness confusion appears better today pt is slow but oriented x2 All systems reviewed & are unremarkable except as noted in HPI and below Constitutional: Constitutional: Reports no additional constitutional complaints Eyes: Eyes: Reports as per HPI and Reports no additional eye complaints ENT: Reports system reviewed and no additional complaints, except as documented Cardiovascular: Cardiovascular: Reports as per HPI and Reports no additional cardiovascular complaints Respiratory: Respiratory: Reports as per HPI and Reports no additional respiratory complaints Musculoskeletal: Musculoskeletal: Reports as per HPI and Reports arthralgias Integumentary/Breasts: Skin/Breast: Reports system reviewed and no additional complaints, except as docu Neurologic: Reports system reviewed and no additional complaints, except as documented Psychiatric: Psychiatric: Reports no additional psychiatric complaints Exam Narrative: APPEARANCE: No apparent distress. slow to converse pt states he is tired NECK: Trachea midline RESPIRATORY: No increased rate of breathing clear to auscultation CARDIOVASCULAR: RRR, no peripheral edema ABDOMINAL: Non-distended soft nontender MUSCULOSKELETAl: No obvious deformities NEURO: Alert. Moving 4/4 extremities SKIN:: Warm, dry. Normal color PSYCHIATRIC: Normal affect Const: General: cooperative, comfortable, alert and awake Orientation/consciousness: oriented to person, oriented to place and oriented to time Eyes: General: appearance normal, both eyes and all related structures Neck: Neck: normal visual inspection, full ROM and no lymphadenopathy Chest: Chest palpation & inspection: normal inspection of the chest Resp: Effort & Inspection: normal respiratory effort Auscultation: clear to auscultation bilaterally Cardio: Jugular venous distension: no JVD Palpation: normal PMI Rate: regular rate Rhythm: regular rhythm Heart sounds: S1 normal heart sound present and S2 normal heart sound present GI: Inspection: normal to inspection Auscultation: normal bowel sounds Skin: General skin exam: normal color, no rashes or lesions noted, erythema and wounds noted Wounds: wounds noted Neuro: General: oriented to person, oriented to place, oriented to time, moves all extremities and Unable to assess gait Cranial nerves: Yes CN's II-XII intact bilaterally Speech: normal speech Gait exam (Neuro): Unable to assess gait Extrem: General: full ROM Right upper extremity: normal to inspection Left upper extremity: normal to inspection Right lower extremity: edema Details: 1+ Left lower extremity: edema Details: 1+ Psych: Appearance: grossly normal Speech and movement: Clear speech present and Slowed speech present (Psych) Affect: normal affect Attitude: cooperative Objective Data Vital Signs Vital Signs: Vital Signs - 24 hr 07/18/24 07:45 07/18/24 08:15 07/18/24 10:30 Temperature 98.1 F 97.7 F Pulse Rate 62 62 51 L Respiratory Rate 18 18 18 Blood Pressure 155/48 H 152/47 H Pulse Oximetry 96 96 95 Oxygen Delivery CPAP 07/18/24 11:10 07/18/24 12:10 07/18/24 14:25 Temperature 97.7 F 97.4 F L Pulse Rate 53 L 52 L 47 L Respiratory Rate 20 18 Blood Pressure 136/53 L 142/42 H 138/43 L Pulse Oximetry 96 95 Oxygen Delivery 07/18/24 20:00 07/18/24 21:16 07/19/24 06:00 Temperature 98.4 F 97.6 F Pulse Rate 62 62 60 Respiratory Rate 18 18 18 Blood Pressure 153/50 H 165/70 H Pulse Oximetry 94 94 96 Oxygen Delivery CPAP Intake/Output Intake/Output: Intake & Output 07/16/24 07/17/24 07/18/24 07/19/24 23:59 23:59 23:59 23:59 Intake Total 1920 1580 3040 200 Output Total 1300 1700 2900 500 Balance 620 -120 140 -300 Meds/Results Medications: Active Medications Generic Name Dose Route Start Last Admin Trade Name Freq PRN Reason Stop Dose Admin Acetaminophen/Codeine Phosphate 1 tab 07/15/24 17:01 Acetaminophen/Codeine (*Crx) 300/30 Mg Tablet PO Q12H PRN pain Amlodipine Besylate 10 mg 07/16/24 09:00 07/18/24 09:08 Amlodipine Besylate 10 Mg Tablet PO 10 mg DAILY ELISHA Administration Aspirin 81 mg 07/16/24 09:00 07/18/24 09:08 Aspirin 81 Mg Enteric Tablet PO 81 mg DAILY ELISHA Administration Atorvastatin Calcium 40 mg 07/15/24 18:00 07/18/24 17:14 Atorvastatin 40 Mg Tablet PO 40 mg QPM ELISHA Administration Bupropion HCl 150 mg 07/16/24 09:00 07/18/24 09:07 Bupropion Hcl Xl (24 Hr) 150 Mg Tabcr PO 150 mg DAILY ELISHA Administration Chlorpheniramine Maleate 4 mg 07/15/24 21:00 07/18/24 20:24 Chlorpheniramine Maleate 4 Mg Tablet PO 4 mg Q12HR ELISHA Administration Cyclobenzaprine HCl 10 mg 07/18/24 15:42 Cyclobenzaprine Hcl 10 Mg Tablet PO TID PRN Spasms Enoxaparin Sodium 40 mg 07/16/24 13:35 07/18/24 09:19 Enoxaparin 40 Mg/0.4 Ml Syringe SUB-Q 40 mg DAILY ELISHA Administration Hydrochlorothiazide 12.5 mg 07/15/24 21:00 07/18/24 20:24 Hydrochlorothiazide 12.5 Mg Capsule PO 12.5 mg Q12HR ELISHA Administration Lisinopril 20 mg 07/16/24 09:00 07/18/24 09:11 Lisinopril 20 Mg Tablet PO 20 mg DAILY ELISHA Administration Meloxicam 15 mg 07/16/24 09:00 07/18/24 09:08 Meloxicam 7.5 Mg Tablet PO 15 mg DAILY ELISHA Administration Pantoprazole Sodium 40 mg 07/16/24 09:00 07/18/24 09:08 Pantoprazole 40 Mg Tablet PO 40 mg DAILY ELISHA Administration Sertraline HCl 50 mg 07/16/24 09:00 07/18/24 09:07 Sertraline Hcl 50 Mg Tablet PO 50 mg DAILY ELISHA Administration Tamsulosin HCl 0.4 mg 07/16/24 09:00 07/18/24 09:11 Tamsulosin Hcl 0.4 Mg Capsule PO 0.4 mg DAILY ELISHA Administration Trazodone HCl 100 mg 07/15/24 21:00 07/18/24 20:24 Trazodone Hcl 50 Mg Tablet PO 100 mg HS ELISHA Administration Zolpidem Tartrate 5 mg 07/15/24 21:00 07/18/24 20:24 Zolpidem Tartrate (*Crx) 5 Mg Tablet PO 5 mg HS ELISHA Administration Radiology Results: ITS Impressions Head CT 07/14/24 18:03 IMPRESSION: No acute intracranial process. Chest X-Ray 07/14/24 18:26 IMPRESSION: No acute cardiopulmonary process. Knee X-Ray 07/18/24 12:56 Impression: 1: Mild osteoarthritis of the right knee. 2: Moderate joint effusion. Labs Labs: Laboratory Results - last 24 hr 07/18/24 08:01 WBC 10.0 RBC 4.80 Hgb 13.3 L Hct 42.2 MCV 87.9 MCH 27.7 MCHC 31.5 L RDW 13.6 Plt Count 203 MPV 10.7 H Immature Gran % (Auto) 0.4 Neut % (Auto) 64.0 Lymph % (Auto) 22.5 [place] % (Auto) 9.4 H Eos % (Auto) 3.2 Baso % (Auto) 0.5 Lymph # (Auto) 2.26 [place] # (Auto) 0.9 H Eos # (Auto) 0.3 Baso # (Auto) 0.1 Abs Immat Gran (auto) 0.04 H Absolute Neuts (auto) 6.4 Absolute Nucleated RBC 0.000 Nucleated RBC % 0.0 Sodium 141 Potassium 4.1 Chloride 100 Carbon Dioxide 30 Anion Gap 11 BUN 21 H Creatinine 0.92 Estim Creat Clear Calc 87 Estimated GFR > 60 Glucose 93 Calcium 9.1 Magnesium 1.8 Total Bilirubin 0.5 AST 20 ALT 23 Alkaline Phosphatase 96 NT-Pro-B Natriuret Pep 184 H Total Protein 7.0 Albumin 4.2 Quality VTE Prophylaxis VTE prophylaxis: mechanical ordered
--- NOTE | 2024-07-19 07:13 | PM.CNOR ---
Assessment and Plan Assessment and plan (1) Right knee pain: Code(s): M25.561 - Pain in right knee Status: Acute Assessment and Plan: Patient is knee pain right. He does not recall any trauma to the knee despite the abrasions that he has. He does have spent some patella the irritability as well as pain medially neurologically he is intact. I think he has a contusion to his patella I less likely a small meniscal tear. I told him that when he leaves the hospital will take a look at him in the office probably give a shot of cortisone to see if we get rid of the pain. If not may require an MRI scan at some point. At this point his overall health is not such a surgery would be a good option for him discussed. History of Present Illness HPI Consult date: 07/19/24 Chief complaint: Weakness Review of Systems Review of Systems: confusion and weakness confusion appears better today pt is slow but oriented x2 All systems reviewed & are unremarkable except as noted in HPI and below Constitutional: Constitutional: Reports no additional constitutional complaints Eyes: Eyes: Reports as per HPI and Reports no additional eye complaints ENT: Reports system reviewed and no additional complaints, except as documented Cardiovascular: Cardiovascular: Reports as per HPI and Reports no additional cardiovascular complaints Respiratory: Respiratory: Reports as per HPI and Reports no additional respiratory complaints Musculoskeletal: Musculoskeletal: Reports as per HPI and Reports arthralgias Integumentary/Breasts: Skin/Breast: Reports system reviewed and no additional complaints, except as docu Neurologic: Reports system reviewed and no additional complaints, except as documented Psychiatric: Psychiatric: Reports no additional psychiatric complaints [facility] Social History Social History Smoking status: Never smoker Do You Feel Safe in your Home?: Yes Lack of Transportation: No Lack of Food: Never True Current Housing: I Have Housing Concerned About Future Housing: No Difficulty Paying Gas/Electric Bills: No Difficulty Paying for Meds: No Currently Unemployed: No Education: Bachelor's Degree Difficulty w/ Childcare or Family Care: No Spiritual care concerns: No Meds Home Medications and Allergies Home Medications ?Medication ?Instructions ?Recorded ?Confirmed ?Type acetaminophen 300 mg-codeine 30 mg 1 tablet PO Q12H PRN pain 07/15/24 07/15/24 History tablet amlodipine 10 mg tablet 10 mg PO DAILY 07/15/24 07/15/24 History aspirin 81 mg tablet,delayed 81 mg PO DAILY 07/15/24 07/15/24 History release atorvastatin 40 mg tablet 40 mg PO QPM 07/15/24 07/15/24 History bupropion HCl 150 mg 24 hr tablet, 150 mg PO DAILY 07/15/24 07/15/24 History extended release chlorpheniramine maleate 4 mg 4 mg PO Q12H 07/15/24 07/15/24 History tablet (Aller-Chlor) cyclobenzaprine 10 mg tablet 10 mg PO TID 07/15/24 07/15/24 History fenofibrate 54 mg tablet 54 mg PO DAILY 07/15/24 07/15/24 History hydrochlorothiazide 12.5 mg capsule 12.5 mg PO Q12H 07/15/24 07/15/24 History lisinopril 20 mg tablet 20 mg PO DAILY 07/15/24 07/15/24 History meloxicam 15 mg tablet 15 mg PO DAILY 07/15/24 07/15/24 History pantoprazole 40 mg tablet,delayed 40 mg PO DAILY 07/15/24 07/15/24 History release sertraline 50 mg tablet 50 mg PO Q24H 07/15/24 07/15/24 History tamsulosin 0.4 mg capsule 0.4 mg PO DAILY 07/15/24 07/15/24 History trazodone 100 mg tablet 100 mg PO HS 07/15/24 07/15/24 History zolpidem 5 mg tablet 5 mg PO HS 07/15/24 07/15/24 History Allergies Allergy/AdvReac Type Severity Reaction Status Date / Time tramadol Allergy Mild ITCHING Verified 07/15/24 10:19 Vital Signs Vital Signs - 24 hr 07/18/24 07:45 07/18/24 08:15 07/18/24 10:30 Temperature 98.1 F 97.7 F Pulse Rate 62 62 51 L Respiratory Rate 18 18 18 Blood Pressure 155/48 H 152/47 H Pulse Oximetry 96 96 95 Oxygen Delivery CPAP 07/18/24 11:10 07/18/24 12:10 07/18/24 14:25 Temperature 97.7 F 97.4 F L Pulse Rate 53 L 52 L 47 L Respiratory Rate 20 18 Blood Pressure 136/53 L 142/42 H 138/43 L Pulse Oximetry 96 95 Oxygen Delivery 07/18/24 20:00 07/18/24 21:16 07/19/24 06:00 Temperature 98.4 F 97.6 F Pulse Rate 62 62 60 Respiratory Rate 18 18 18 Blood Pressure 153/50 H 165/70 H Pulse Oximetry 94 94 96 Oxygen Delivery CPAP Exam Narrative: Patient has tenderness palpation medially and equivocal Jorge's pain with manipulation his motion is reasonable. He has significant venous stasis changes in his legs with an abrasion over the knee. He does not recall any trauma despite the abrasion. Radiology Reports: Comments: XRay Report Signed Patient: Vince Campoverde II XR knee RT 3V 07/18/2024 12:05 Indication: Right knee pain Procedure: 3 views right knee Comparison: No prior studies for comparison. Findings: There is mild tricompartment osteoarthritis. Moderate joint effusion. No fracture or traumatic malalignment. No foreign bodies. Impression: 1: Mild osteoarthritis of the right knee. 2: Moderate joint effusion. Reviewed, dictated and finalized at location [facility]. [facility] [employer] Please be advised this is a medical doc Knee X-Ray 07/18/24 Results Labs 07/18/24 08:01 07/18/24 08:01 Labs: Abnormal lab results 07/18/24 Range/Units 08:01 Hgb 13.3 L (14.0-18.0) g/dL MCHC 31.5 L (32-36) g/dl MPV 10.7 H (7.4-10.4) fl [place] % (Auto) 9.4 H (2.6-8.5) % [place] # (Auto) 0.9 H (0.1-0.6) K/mm3 Abs Immat Gran (auto) 0.04 H (0.00-0.031) K/mm3 BUN 21 H (9-20) mg/dL NT-Pro-B Natriuret Pep 184 H (19.9-100) pg/mL H & H 07/14/24 07/17/24 07/18/24 Range/Units 23:40 05:30 08:01 Hgb 14.4 12.8 L 13.3 L (14.0-18.0) g/dL Hct 45.3 40.6 L 42.2 (42.0-52.0) % Coagulation 07/14/24 Range/Units 23:40 INR 1.0 All other labs normal.
[2024-07-19 08:00] VITALS: PULSE 60; RESP 18; O2SAT 96
[2024-07-19 08:24] LABS: Basophils Absolute Auto 0.1 K/mm3 (0.0-0.1); Basophils Percent Auto 0.6 % (0.2-1.2); Eosinophils Absolute Auto 0.3 K/mm3 (0-0.3); Eosinophils Percent Auto 3.2 % (0-4.4); Hematocrit 39.8 % (42.0-52.0); Hemoglobin 12.6 g/dL (14.0-18.0); Immature Granulocyte Absolute 0.02 K/mm3 (0.00-0.031); Immature Granulocyte Percent A 0.2 % (0-0.5); Lymphocytes Absolute Auto 2.32 K/mm3 (0.9-3.2); Lymphocytes Percent Auto 24.4 % (18.3-44.2); Mean Corpuscular HGB Conc 31.7 g/dl (32-36); Mean Corpuscular Hemoglobin 27.6 pg (26-34); Mean Corpuscular Volume 87.3 fl (80-100); Mean Platelet Volume 10.3 fl (7.4-10.4); Monocytes Absolute Auto 1.2 K/mm3 (0.1-0.6); Monocytes Percent Auto 12.7 % (2.6-8.5); Neutrophils Absolute Auto 5.6 K/mm3 (1.3-6.7); Neutrophils Percent Auto 58.9 % (45.5-73.1); Platelet Count Result 175 k/mm3 (150-375); Red Blood Count 4.56 M/mm3 (4.6-6.20); Red Cell Distribution Width 13.8 % (11.5-14.5); White Blood Count 9.5 K/mm3 (4.5-10.0)
[2024-07-19 08:32] LABS: Alanine Aminotransferase 19 U/L (6-50); Albumin Level 3.9 g/dL (3.5-5.1); Alkaline Phosphatase 79 U/L (38-126); Anion Gap 6 mmol/L (4-12); Aspartate Amino Transferase 20 U/L (17-59); Bilirubin,Total 0.5 mg/dL (0.2-1.3); Blood Urea Nitrogen 18 mg/dL (9-20); Calcium 8.9 mg/dL (8.4-10.2); Carbon Dioxide 31 mmol/L (22-30); Chloride 104 mmol/L (98-107); Estimated CRCL calculation 88 ml/min; Estimated Glomerular Filt Rate > 60; Glucose 99 mg/dL (65-110); Potassium 4.1 mmol/L (3.4-5.0); Sodium 141 mmol/L (137-145)
[2024-07-19] MEDS: buPROPion HCL XL (24 HR) 150 MG TABCR PO (08:49)
[2024-07-19] MEDS: TAMSULOSIN HCL 0.4 MG CAPSULE PO (08:49)
[2024-07-19] MEDS: SERTRALINE HCL 50 MG TABLET PO (08:49)
[2024-07-19] MEDS: CHLORPHENIRAMINE MALEATE 4 MG TABLET PO (08:49)
[2024-07-19] MEDS: hydroCHLOROthiazide 12.5 MG CAPSULE PO (08:49)
[2024-07-19] MEDS: amLODIPine BESYLATE 10 MG TABLET PO (08:50)
[2024-07-19] MEDS: MELOXICAM 7.5 MG TABLET 15 MG PO (08:50)
[2024-07-19] MEDS: PANTOPRAZOLE 40 MG TABLET PO (08:50)
[2024-07-19] MEDS: lisinopriL 20 MG TABLET PO (08:50)
[2024-07-19] MEDS: ASPIRIN 81 MG ENTERIC TABLET PO (08:50)
[2024-07-19] MEDS: ENOXAPARIN 40 MG/0.4 ML SYRINGE SUB-Q (09:51)
[2024-07-19 11:17] LABS: Influenza A QL RT-PCR Negative (Negative); Influenza B QL RT-PCR Negative (Negative); SARS-CoV-2 RNA PCR Negative (Negative)
--- NOTE | 2024-07-19 12:33 | P.DS_ITS ---
DS: Admitting Diagnosis Discharge Date 07/19/24 Admitting Diagnosis weakness frequent falls DS: Discharge Diagnosis Discharge Diagnosis (1) Recurrent falls: Code(s): R29.6 - Repeated falls Status: Acute Assessment and Plan: - PT/ OT ordered - evaluated for home with HH vs Acute Rehab - right knee xray d/t complaint of pain - consulting Orthopedist and will follow outpatient. - Possible [facility] once [facility] available --> patient accepted at SNF today (2) Confusion: Code(s): R41.0 - Disorientation, unspecified Status: Acute Assessment and Plan: - CT head neg - labs negative - UA normal - BNP 627 --> 163 - order neurology consult - not available at this time, - not wearing CPAP? - contributing factor possibly - early dementia pt appears slow to talk or answer questions (3) Generalized weakness: Code(s): R53.1 - Weakness Status: Acute Assessment and Plan: - Reports he has been feeling somewhat confused and increasingly weak over the last 1 month. - He has been having recurrent falls. - CT head normal - r/o dementia - ordered PT/ OT eval (4) COOPER on CPAP: Code(s): G47.33 - Obstructive sleep apnea (adult) (pediatric) Status: Acute Assessment and Plan: ##Chronic --> has not been wearing, trouble setting it up --> restart CPAP per home settings (5) Right knee pain: Code(s): M25.561 - Pain in right knee Status: Acute Assessment and Plan: ## - old scabbed laceration to right knee, --> reports from fall last week -->right knee xray noted Impression: 1: Mild osteoarthritis of the right knee. 2: Moderate joint effusion. --> will consult Ortho Plan Patient to be discharged to retirement facility today DS: Summary Hospital Course Hospital Course: This is a pleasant 69 y/o male that presented to the ED via EMS from home with report of weakness. Patient is a poor historian. Reports he has been feeling somewhat confused and increasingly weak over the last 1 week. Reports dry cough. Denies fevers, CP, SOB, BLE pain or swelling, N/V. Chest xray noted no abnormality, CT head noted no acute findings. Patient denies headache, fevers, chest pain, difficulty breathing, abdominal pain, nausea vomiting diarrhea, dysuria or any other physical complaints. in the ED, his vitals were stable. Laboratory workup revealed negative flu RSV and reviewed. CBC CMP unremarkable. Urinalysis negative for infection. Patient was admitted for his weakness, PT/OT evaluation and Neurology. However Neurology was unavailable for evaluation. PT/OT was able to work with patient, his Flexeril t.i.d. was changed to p.r.n. Patient was able to work with PT OT. However the patient was not able to fully recover and will need to skilled rehab. labs have maintained stable. He denies any distress or concerns this morning. Orthopedics did come and evaluate his right knee, stating that he is stable to be discharged on the follow-up outpatient. Patient was accepted in a retirement facility locally, while awaiting [facility]. Patient was agreeable to the discharge to SNF placement for continued PT and OT. Answered all questions to satisfaction, he is agreeable to discharge. Status at Discharge Cognitive/behavioral status at discharge: at baseline Functional status at discharge: wheelchair bound Overall status at discharge: patient is not back to baseline Time Spent with Patient Time attestation: Total time spent providing and/or coordinating discharge services: Time spent: Greater than 30 minutes (45 minutes) DS: Data Data Completed and Pending Labs on day of discharge: Labs from last 24 hours 07/19/24 07/19/24 10:30 08:10 WBC 9.5 RBC 4.56 L Hgb 12.6 L Hct 39.8 L MCV 87.3 MCH 27.6 MCHC 31.7 L RDW 13.8 Plt Count 175 MPV 10.3 Immature Gran % (Auto) 0.2 Neut % (Auto) 58.9 Lymph % (Auto) 24.4 [place] % (Auto) 12.7 H Eos % (Auto) 3.2 Baso % (Auto) 0.6 Lymph # (Auto) 2.32 [place] # (Auto) 1.2 H Eos # (Auto) 0.3 Baso # (Auto) 0.1 Abs Immat Gran (auto) 0.02 Absolute Neuts (auto) 5.6 Absolute Nucleated RBC 0.000 Nucleated RBC % 0.0 Sodium 141 Potassium 4.1 Chloride 104 Carbon Dioxide 31 H Anion Gap 6 BUN 18 Creatinine 0.91 Estim Creat Clear Calc 88 Estimated GFR > 60 Glucose 99 Calcium 8.9 Total Bilirubin 0.5 AST 20 ALT 19 Alkaline Phosphatase 79 Total Protein 7.0 Albumin 3.9 Influenza A (RT-PCR) Negative Influenza B (RT-PCR) Negative SARS-CoV-2 RNA (RT-PCR) Negative Preliminary micro results at discharge 07/14/24 23:44 Blood Culture - Preliminary Blood 07/14/24 23:44 Blood Culture - Preliminary Blood Imaging Radiologist's impression: 07/14/24 CT Head W/o. FINDINGS: No acute intracranial hemorrhage or extra-axial fluid collection. No hydrocephalus, mass, or herniation. No acute ischemic infarct. Unremarkable dural venous sinus attenuation. No acute osseous abnormality. Right maxillary retention cyst/polyp, mild left inferior frontal and ethmoid mucosal thickening, the remaining aerated spaces are clear. Moderate cerebral and cerebellar atrophy and mild chronic white matter change. Atherosclerotic intracranial calcification. IMPRESSION: No acute intracranial process. Chest Xray 1 V IMPRESSION: No acute cardiopulmonary process. Discharge Plan Discharge Attending physician on discharge: Blank Juarez Consulting providers: Fox Rodriguez; Benton Simpson Discharging Clinician: Blank Juarez Anticipated Discharge Date/Time: 07/19/24 10:20 Patient Disposition: SNF Activity: may shower and as tolerated Diet: heart healthy Discharge Instructions: PT OT to evaluate on arrival, continue home medications as documented. Activity as tolerated, heart healthy diet, follow-up with PCP as instructed in 1 week. Return emergency department if any chest pain, shortness of breath. Patient Language: Slovenian Stand Alone Forms: General Discharge Information, Long-Term Discharge Follow-up/Referrals: Benton Simpson MD [Physician] - (in one week for Right knee pain) Fox Rodriguez MD [Physician] - (Follow-up outpatient, call office for appointment) Discharge Medications: New cyclobenzaprine 10 mg Tablet 10 mg PO TID PRN (Reason: Spasms) 10 Days Qty: 30 0RF Continued atorvastatin 40 mg tablet 40 mg PO QPM chlorpheniramine maleate [Aller-Chlor] 4 mg tablet 4 mg PO Q12H meloxicam 15 mg tablet 15 mg PO DAILY lisinopril 20 mg tablet 20 mg PO DAILY acetaminophen-codeine 300-30 mg tablet 1 tablet PO Q12H PRN (Reason: pain) aspirin 81 mg tablet,delayed release (DR/EC) 81 mg PO DAILY tamsulosin 0.4 mg capsule 0.4 mg PO DAILY trazodone 100 mg tablet 100 mg PO HS amlodipine 10 mg tablet 10 mg PO DAILY pantoprazole 40 mg tablet,delayed release (DR/EC) 40 mg PO DAILY hydrochlorothiazide 12.5 mg capsule 12.5 mg PO Q12H zolpidem 5 mg tablet 5 mg PO HS sertraline 50 mg tablet 50 mg PO Q24H bupropion HCl 150 mg tablet extended release 24 hr 150 mg PO DAILY fenofibrate 54 mg tablet 54 mg PO DAILY Discontinued cyclobenzaprine 10 mg tablet 10 mg PO TID Date of admission: 07/16/24 10:53 Primary Care Provider: [place], Admitting Provider: Radha Zimmerman Attending physician on admission: Radha Zimmerman Condition: Stable Quality VTE Prophylaxis VTE prophylaxis: mechanical ordered Hospitalist MIPS Heart Failure (Exclusion) Patient has history of Heart Transplant or Left Ventricular Assistive Device?: No IF YES, STOP HERE Heart Failure (Qualifier) Patient has current or prior documentation of LVEF less than or equal to 40%, or mod/servere depressed LVSF?: No IF NO, STOP HERE
[2024-07-19 14:00] VITALS: BP 117/64; PULSE 68; RESP 18; TEMP 37.4; O2SAT 92
== END 2024-07-19 16:00 | DRG 948 ==
LOC: ANHED 07-15 02:59 → ANH3MEDSUR 07-15 03:49 → ANH2MED 07-15 14:24
PROVIDERS: Family Medicine; Physician Assistant; Admitting Provider Internal Medicine; Emergency Provider Emergency Medicine; Visit Provider Nurse Practitioner Family
DX: R53.1 Weakness (principal); R29.6 Repeated falls; R41.0 Disorientation, unspecified; G47.33 Obstructive sleep apnea (adult) (pediatric); M17.11 Unilateral primary osteoarthritis, right knee; S81.011D Laceration without foreign body, right knee, subsequent encounter; Z99.89 Dependence on other enabling machines and devices; Z91.199 Patient's noncompliance with other medical treatment and regimen due to unspecified reason; Z11.52 Encounter for screening for COVID-19; Z20.822 Contact with and (suspected) exposure to COVID-19
CPT/HCPCS: 36415; 70450; 71046; 73562; 80053; 81003; 82607; 83605; 83735; 83880; 84443; 85025; 85610; 85730; 87040; 87636; 87637; 93005; 97110; 97161; 97165; 97530; 97535; 99285; A9270; G0378; J1650; J7030